=== PATIENT | female | born 1975 | race Caucasian/White ===

== ENCOUNTER 2019-08-27 09:24 | Outpatient (CLI) | payer BC, SELFPAY ==
--- NOTE | 2019-08-27 09:35 | MM_ITS ---
WS: [id number] BILATERAL DIGITAL SCREENING MAMMOGRAPHY WITH CAD CLINICAL INFORMATION: SCREENING HISTORY: Screening mammogram. No current complaints. COMPARISON: July 14, 2018 TECHNIQUE: Bilateral CC and MLO views. FINDINGS: Scattered fibroglandular densities bilaterally. No suspicious focal mass, asymmetry, calcifications, or architectural distortion. No evidence of malignancy. No interval changes. NOTE: Report was unsigned for reason: Ordering provider was edited. Original Signature date and time was: 08/27/19 1728 MTDD MM/[id number] IMPRESSION: BI-RADS: 1-Negative FOLLOW UP: 1 Year Follow-up Recommend return to annual screening mammography.
== END 2019-08-27 09:25 | disposition home or self-care (01) ==
LOC: RADSHAW 09:29
PROVIDERS: Family Provider Family Medicine; PCP Family Medicine; Visit Provider Obstetrics & Gynecology
DX: Z12.31 Encounter for screening mammogram for malignant neoplasm of breast (principal)
CPT/HCPCS: 77067

== ENCOUNTER 2019-09-06 12:00 | Outpatient (CLI) | payer BC, SELFPAY | END 2019-09-06 12:01 | disposition home or self-care (01) | LOC: SLEEP 09-08 12:39 | PROVIDERS: Family Provider Family Medicine; PCP Family Medicine; Visit Provider Family Medicine | DX: G47.33 Obstructive sleep apnea (adult) (pediatric) (principal) | CPT/HCPCS: G0399 ==

== ENCOUNTER 2020-10-05 08:03 | Outpatient (CLI) | payer BC, SELFPAY ==
--- NOTE | 2020-10-05 08:18 | XR_ITS ---
WS: [id number] RIGHT ANKLE: 3 VIEW(S) TECHNIQUE: AP, oblique(s) and lateral. HISTORY: R ANKLE PAIN COMPARISON: 10/21/2007 Normal anatomic alignment with no fracture or dislocation. No joint effusion or widening of the ankle mortise. Small calcaneal spur No soft tissue abnormality. XR/XR ankle RT min 3V* [id number] IMPRESSION: Small calcaneal spur. No fracture.
== END 2020-10-05 08:04 | disposition home or self-care (01) ==
PROVIDERS: PCP Family Medicine; Visit Provider Family Medicine
DX: M25.571 Pain in right ankle and joints of right foot (principal); M77.31 Calcaneal spur, right foot
CPT/HCPCS: 73610

== ENCOUNTER 2020-10-31 14:09 | Outpatient (CLI) | payer SELFPAY ==
--- NOTE | 2020-10-31 14:17 | US_ITS ---
WS: [id number] THYROID ULTRASOUND (TI-RADS CRITERIA) History: Antibody positive thyroiditis. Technique: Ultrasound examination of the thyroid and adjacent soft tissues is performed. FINDINGS: Right lobe: 5.7 cm x 1.8 cm x 2.1 cm. Volume: 11.5 cm3. Moderate enlargement of the thyroid. Marked increased coarsened echotexture without a discrete nodule . There is also moderate increased vascularity. Multiple tiny micronodules. Left lobe: 4.5 cm x 1.5 cm x 1.5 cm. Volume: 5.3 cm3. Mild enlargement of the gland with tiny micronodules. No dominant nodule. Mild increased vascularity. Small cervical chain lymph nodes are benign in appearance. Isthmus: 0.5 cm. US/US thyroid [id number] Impression: 1. Mildly enlarged thyroid with moderate hypervascularity. Findings are consis tent with Graves' disease. 2. No dominant or suspicious thyroid nodule.
== END 2020-10-31 14:10 | disposition home or self-care (01) ==
PROVIDERS: PCP Registered Nurse; Visit Provider Registered Nurse
DX: R76.8 Other specified abnormal immunological findings in serum (principal); E04.9 Nontoxic goiter, unspecified
CPT/HCPCS: 76536

== ENCOUNTER → 2020-11-03 11:37 | Outpatient (BNVA) | payer OTHER, SELFPAY | PROVIDERS: PCP Registered Nurse; Visit Provider Obstetrics & Gynecology | DX: Z20.822 Contact with and (suspected) exposure to COVID-19 (principal) | CPT/HCPCS: 87635 ==

== ENCOUNTER 2020-11-17 09:08 | Outpatient (CLI) | payer OTHER, SELFPAY ==
--- NOTE | 2020-11-17 09:13 | MM_ITS ---
WS: [id number] Bilateral screening digital mammogram, 11/17/2020 Clinical Data: SCREENING Comparison: 08/27/2019, 07/14/2018, 06/18/2017, 04/30/2016. Findings: The breast parenchymal pattern shows fibroglandular tissue No spiculated masses or clustered calcific ations are seen. There are no secondary signs of carcinoma. MM/[id number] Impression: 1. Negative bilateral mammogram unchanged. 2. Recommend annual screening mammograms. BIRADS: 1-Negative FOLLOW UP: 1 Year Follow-up The CAD dump grounds checker was used.
== END 2020-11-17 09:09 | disposition home or self-care (01) ==
LOC: RADSHAW 09:11
PROVIDERS: PCP Registered Nurse; Visit Provider Registered Nurse
DX: Z12.31 Encounter for screening mammogram for malignant neoplasm of breast (principal)
CPT/HCPCS: 77067

== ENCOUNTER → 2020-12-14 11:25 | Outpatient (BNVA) | payer OTHER, SELFPAY | PROVIDERS: PCP Registered Nurse; Visit Provider Obstetrics & Gynecology | DX: N39.3 Stress incontinence (female) (male) (principal); Z20.822 Contact with and (suspected) exposure to COVID-19 | CPT/HCPCS: 87635 ==

== ENCOUNTER 2020-12-20 08:34 | Observation (INO) | payer OTHER, SELFPAY ==
[2020-12-18 10:11] VITALS: BMI 33.6
[2020-12-18 10:16] LABS: Add Urine Microscopic? NO; Charge for UA Resulting for Rev
[2020-12-18 10:18] LABS: Basophils % 0.5 %; Eosinophils # 0.2 10^3/uL (0.0-0.8); Eosinophils % 3.9 %; Hematocrit 42.2 % (37.0-47.0); Lymphocytes # 1.9 10^3/uL (0.8-4.8); Lymphocytes % 33.7 %; Mean Corpuscular HGB Conc 33.2 g/dL (30.0-36.0); Mean Corpuscular Hemoglobin 31.4 pg (28.0-34.0); Mean Corpuscular Volume 94.6 fL (81-99); Mean Platelet Volume 9.8 fL (7.4-10.4); Monocytes # 0.4 10^3/uL (0.2-0.9); Monocytes % 7.7 %; Neutrophils # 3.07 10^3/uL (1.8-7.7); Neutrophils % 53.8 %; Nucleated Red Blood Cells % 0 %; Platelet Count 293 10^3/cmm (130-400); Red Blood Count 4.46 10^6/uL (4.1-5.3); Red Cell Distribution Width 13.1 % (12.1-15.1); White Blood Count 5.7 10^3/uL (4.0-10.0)
[2020-12-18 10:24] LABS: Bilirubin Urine Neg (Negative); Blood Urine Neg (Negative); Glucose Urine UA Norm (Normal); Ketones Urine Negative (Negative); Leukocyte Esterase Urine Negative (Negative); Nitrate Urine Negative (Negative); Protein Urine Neg (Negative); Urine Appearance Clear (CLEAR); Urine Color Yellow (Yellow); Urobilinogen Urine 1 mg/dL (Negative); pH Urine 7 (5-7)
--- NOTE | 2020-12-18 10:32 | ANES.PREANE2 ---
Pre-Anesthetic Assessment Pre-Anesthetic Assessment: Height/Weight: Height 1.65 m Weight 91.626 kg Preop Diagnosis: Stress urinary incontinence Proposed Procedure: Operation Date: 12/20/20 09:00 Proposed Procedures p Midurethral single incision sling 91628 N39.3(Not Applicable) - Marc Rolon MD Was Beta Bryant taken within 24 hours: N/A Was Clonidine taken within 24 hours: N/A Social: Social History: No alcohol and No tobacco Exam: Pre-Anes Outpt Exam: alert, oriented x 3, clear to auscultation bilaterally and regular rate & rhythm Airway: Submandibular: WNL Cervical ROM: WNL MP: 2 Dentition: Full CV/HEM: CV/HEM: HTN Metabolic: Metabolic: Morbid obesity Neuropsych: Comments: h/o brain tumor s/p resection Anesthetic Plan: ASA status: 2 Anesthesia: General Risk of > 500 ml blood loss (7ml/kg in children): No PFSH Anesthesia PFSH: Medical History H/O brain tumor benign tumor removed Hypertension Urinary, incontinence, stress female Surgical History H/O section 2014 History of endometrial ablation 2015 Family History Brother Thyroid condition Sister Thyroid condition Mother Thyroid condition Grandmother Breast cancer maternal great Family/Other Breast cancer maternal great aunt Denies family history of Colon cancer Ovarian cancer Diabetes Clotting disorder Heart disease Hyperlipidemia Anesthesia complication Bleeding disorder Hypertension Uterine cancer Stroke Social History (Updated 12/18/20 @ 08:02 by Kiley Swartz RN) Smoking and tobacco status: never smoked Alcohol intake: never Substance/Drug Use: never Data Anesthesia CBC & Chem 7: 12/18/20 10:00 12/18/20 10:00 Other Labs: Laboratory Results - last 48 hr 12/18/20 12/18/20 09:55 10:00 WBC 5.7 RBC 4.46 Hgb 14.0 Hct 42.2 MCV 94.6 MCH 31.4 MCHC 33.2 RDW 13.1 Plt Count 293 MPV 9.8 Neut % (Auto) 53.8 Lymph % (Auto) 33.7 [place] % (Auto) 7.7 Eos % (Auto) 3.9 Baso % (Auto) 0.5 Neut # (Auto) 3.07 Lymph # (Auto) 1.9 [place] # (Auto) 0.4 Eos # (Auto) 0.2 Baso # (Auto) 0.0 Nucleated RBC % (auto) 0 Nucleated RBCs # 0.0 Urine Color Yellow Urine Appearance Clear Urine pH 7 Ur Specific [place] 1.010 Urine Protein Neg Urine Glucose (UA) Norm Urine Ketones Negative Urine Blood Neg Urine Nitrate Negative Urine Bilirubin Neg Urine Urobilinogen 1 H Ur Leukocyte Esterase Negative Cardiac Studies: No Data to Display
[2020-12-18 10:36] LABS: Alanine Aminotransferase 43 U/L (0-33); Albumin Level 4.2 g/dL (3.5-5.2); Alkaline Phosphatase 83 IU/L (35-105); Aspartate Amino Transferase 15 U/L (0-32); Blood Urea Nitrogen 14 mg/dL (6-20); Calcium 8.3 mg/dL (8.5-10.5); Carbon Dioxide 25 mmol/L (22-29); Chloride 107 mmol/L (98-107); Globulin 2.7 g/dL (1.3-4.6); Glomerular Filtration Rate 90.5 mL/min (90-130); Glucose 73 mg/dL (65-115); Osmolality Calculated 289 mOsm/kg (285-295); Sodium 140 mmol/L (136-145); Total Bilirubin 0.4 mg/dL (0.15-1.2); Total Protein 6.9 g/dL (6.6-8.7)
[2020-12-18 10:38] LABS: Anion Gap 11.8 (5-19); Potassium 3.8 mmol/L (3.5-5.1)
[2020-12-20] VITALS (18 sets, daily range): BP systolic 108–162; BP diastolic 64–111; PULSE 58–93; RESP 12–18; TEMP 36.2–36.8; O2SAT 95–100
[2020-12-20 06:58] LABS: OR HCG Qualitative Urine Negative (Negative)
--- NOTE | 2020-12-20 07:01 | W.PM.OPSUD ---
Surgery/Procedure H&P Update DATE OF PROCEDURE: December 20, 2020 DATE H&P PERFORMED: 12/18/20 H&P UPDATE INFORMATION: I have reviewed H&P completed within last 30 days, I have examined patient prior to procedure and No changes to prior documentation PREOP DIAGNOSIS: Stress urinary incontinence PLANNED PROCEDURE: Operation Date: 12/20/20 08:50 Proposed Procedures p Midurethral single incision sling 91288 N39.3(Not Applicable) - Marc Rolon MD
[2020-12-20] MEDS: sodium chloride 0.9% 1,000 ML 30 ML IV (07:05)
--- NOTE | 2020-12-20 07:16 | P.ANESUD_ITS ---
Pre-Anesthetic Update Pre-Anesthetic Assessment: Date of Surgery/Procedure: 12/20/20 Preop [place] gnosis: Stress urinary incontinence Proposed Procedure: Operation Date: 12/20/20 08:50 Proposed Procedures p Midurethral single incision sling 75587 N39.3(Not Applicable) - Marc Rolon MD Any changes to Pre-Anesthetic Assessment?: No Labs Last 48hrs: Laboratory Results - last 48 hr 12/18/20 12/18/20 12/18/20 09:55 10:00 10:00 WBC 5.7 RBC 4.46 Hgb 14.0 Hct 42.2 MCV 94.6 MCH 31.4 MCHC 33.2 RDW 13.1 Plt Count 293 MPV 9.8 Neut % (Auto) 53.8 Lymph % (Auto) 33.7 [place] % (Auto) 7.7 Eos % (Auto) 3.9 Baso % (Auto) 0.5 Neut # (Auto) 3.07 Lymph # (Auto) 1.9 [place] # (Auto) 0.4 Eos # (Auto) 0.2 Baso # (Auto) 0.0 Nucleated RBC % (a uto) 0 Nucleated RBCs # 0.0 Sodium 140 Potassium 3.8 Chloride 107 Carbon Dioxide 25 Anion Gap 11.8 BUN 14 Creatinine 0.7 GFR Calculation 90.5 Glucose 73 Calculated Osmolal ity 289 Calcium 8.3 L Total Bilirubin 0.4 AST 15 ALT 43 H Alkaline Phosphata se 83 Total Protein 6.9 Albumin 4.2 Globulin 2.7 Urine Color Yellow Urine Appearance Clear Urine pH 7 Ur Specific [place]it y 1.010 Urine Protein Neg Urine Glucose (UA) Norm Urine Ketones Negative Urine Blood Neg Urine Nitrate Negative Urine Bilirubin Neg Urine Urobilinogen 1 H Ur Leukocyte Amy ase Negative Urine HCG, Qual Blood Type Rho(D) Type Antibody Screen 12/18/20 12/20/20 10:00 06:46 WBC RBC Hgb Hct MCV MCH MCHC RDW Plt Count MPV Neut % (Auto) Lymph % (Auto) [place] % (Auto) Eos % (Auto) Baso % (Auto) Neut # (Auto) Lymph # (Auto) [place] # (Auto) Eos # (Auto) Baso # (Auto) Nucleated RBC % (a uto) Nucleated RBCs # Sodium Potassium Chloride Carbon Dioxide Anion Gap BUN Creatinine GFR Calculation Glucose Calculated Osmolal ity Calcium Total Bilirubin AST ALT Alkaline Phosphata se Total Protein Albumin Globulin Urine Color Urine Appearance Urine pH Ur Specific Gravit y Urine Protein Urine Glucose (UA) Urine Ketones Urine Blood Urine Nitrate Urine Bilirubin Urine Urobilinogen Ur Leukocyte Amy ase Urine HCG, Qual Negative Blood Type A Positive Rho(D) Type Positive / 4+ Antibody Screen Negative Vitals: Temperature 97.1 F L 12/20/20 07:04 Temperature Source Temporal Artery S can 12/20/20 07:04 Pulse Rate 87 12/20/20 07:04 Respiratory Rate 18 12/20/20 07:04 Blood Pressure 162/111 12/20/20 07:04 Blood Pressure Megan n 128 12/20/20 07:04 Pulse Oximetry 96 12/20/20 07:04 Oxygen Delivery Me thod 12/20/20 07:04 Exam: Pre-Anes Outpt Exam: alert, oriented x 3, clear to auscultation bilaterally and regular rate & rhythm Cardiac Studies: 2 No Data to Display
--- NOTE | 2020-12-20 08:06 | PM.OP ---
Operative Report Date of procedure: December 20, 2020 Pre-op Diagnosis: Stress urinary incontinence Post-op diagnosis: same Post-op Findings: Urethral hypermobility Procedure Done: Single incision mid urethral sling Implants: Coloplast single incision sling Pathology: none sent Anesthesia: MAC Estimated blood loss (mL): 25 IV fluids (mL): 100 Urine output (mL): 25 Complications: None Condition: stable Disposition: PACU Brief History: Mrs. Enriquez 45-year-old female with a history of stress urinary incontinence. Procedure: After obtaining informed consent, the patient was taken to the operating room and placed in the supine position, given general anesthesia, and prepped and draped in sterile fashion. The abdomen, vulva and vagina were prepped and draped in a sterile manner. A time out procedure was performed. The anterior vaginal mucosa beneath the midurethra was infiltrated with 0.5% Marcaine with epinephrine. A vertical midline incision was made beneath the midurethra, nearly 1.5 cm length. Careful submucosal dissection was performed bilaterally up to the interior portion of the inferior pubic ramus. The insertion of adductor longus tendon on the patient?s pubic ramus was identified as reference land veena. Palpated the notch along the internal edge of ischiopubic ramus where the adductor longus tendon and the inferior pubic ramus meet. The needle of the SIS inserted aiming at the location of this notch. One of the integrated self-fixating tips place onto the needle by sliding it over the end of the needle. The needle/sling assembly was inserted toward the location of identified reference notch making sure that the flat of the handle is perpendicular to the desired path. The needle was tracked along the posterior surface of the ischiopubic ramus until the midline veena on the mesh is approximately at the midline position under the urethra. The needle was removed and the same was repeated on the contralateral side until the appropriate sling tension under the urethra was achieved ensuring that the mesh lays flat. The sling needle was removed and vaginal incision was closed in a running interlocking fashion with 2-0 Vicryl. Excellent hemostasis was obtained. Sponge, lap, needle, and instrument counts were correct times three. The patient was taken to the recovery room, awake and in stable condition.
--- NOTE | 2020-12-20 09:17 | PC.NURSE ---
Respiratory notified Ruby from respiratory notified at this time. Request for IS education for patient.
[2020-12-20] MEDS: lisinopril 5 mg Tablet PO (10:26)
[2020-12-20] MEDS: dextrose 5%-lactated ringers 1,000 ML 125 ML IV ×2 (10:37→18:28)
[2020-12-20] MEDS: acetaminophen 325 mg Tablet 650 MG PO (11:05)
--- NOTE | 2020-12-20 13:34 | ANE.PACU2 ---
Inpatient post-anesthesia follow up: Airway intact: Yes Vital signs: Temperature 98.0 F Pulse Rate 87 Respiratory Rate 15 Blood Pressure 134/80 Pulse Oximetry 95 Oxygen Delivery Me thod Room Air Oxygen Flow Rate 2 Fraction of Inspir ed Oxygen Hydration adequate: Yes Nausea and vomiting: No Mental status: Baseline
[2020-12-20] MEDS: ketorolac 30 mg/mL INJ IVP ×2 (15:34→21:01)
[2020-12-20] MEDS: docusate sodium 100 mg Capsule PO (18:28)
[2020-12-20] MEDS: methIMAzole 5 MG Tablet 10 MG PO (19:31)
[2020-12-21] MEDS: ketorolac 30 mg/mL INJ IVP (04:09)
[2020-12-21 04:13] VITALS: BP 109/69; PULSE 81; RESP 17; TEMP 36.7; O2SAT 96
[2020-12-21 05:16] LABS: Hematocrit 37.4 % (37.0-47.0); Hemoglobin 12.5 g/dL (11.5-15.3); Mean Corpuscular HGB Conc 33.4 g/dL (30.0-36.0); Mean Corpuscular Hemoglobin 31.8 pg (28.0-34.0); Mean Corpuscular Volume 95.2 fL (81-99); Mean Platelet Volume 10.2 fL (7.4-10.4); Platelet Count 298 10^3/cmm (130-400); Red Blood Count 3.93 10^6/uL (4.1-5.3); Red Cell Distribution Width 13.2 % (12.1-15.1)
--- NOTE | 2020-12-21 08:51 | PM.OBGYDC ---
Discharge Providers TECHNICAL ILLUSTRATOR Date of Admission: 12/20/20 08:34 Date of Discharge: 12/21/20 Attending Provider at Admission: Marc Rolon MD Attending Provider at Discharge: Marc Rolon MD Primary Care Provider: Jessie Land Diagnoses at Discharge Discharge Diagnosis (1) Urinary, incontinence, stress female: Status: Acute Reason for Visit Reason for Visit: Stress incontinence Hospital Course Hospital Course Mrs. Enriquez 45-year-old female with stress urinary incontinence. Admitted for planned single incision mid urethral sling. The single incision mid urethral sling was performed without complications. Overnight observation uneventful. She is operative day one. She is afebrile and hemodynamically stable. Tolerating diet well. Ambulating without difficulty. Pain well under control. Is post void PVR greater than 150 mL the patient will be discharged home with a Orr catheter and leg bag and instructed to return to the clinic on Friday. Otherwise routine follow-up Pap 2 weeks. This documentation was created by [employer] coal dumping equipment operator software (known for inherent coal dumping equipment operator error). Every effort was made to assure accuracy of coal dumping equipment operator. Any obvious errors or omissions should be clarified with the author of the document. Physical Exam Narrative: EXAM NARRATIVE: GA: Alert and oriented ?3. HEENT: WNL. Heart: Regular rate and rhythm. Lungs: Clear to auscultation bilaterally. Abdomen: Bowel sounds present, nontender. COOLER OPERATOR: No bleeding. Extremities: No edema, no cyanosis, no calves pain. Urinary Catheter Management^: f: Cath Placed During This Visit: yes, but has since been removed by the nurse Reason for Continuing Indwelling Catheter: Decision to DC Catheter Urinary Catheter Date of Insertion: 12/20/20 Urinary Catheter Time of Insertion: 07:35 Date Urinary Catheter Removed: 12/21/20 Time Urinary Catheter Discontinued: 06:40 Discharge Data Data Completed and Pending: Labs from last 24 hours 12/21/20 05:02 WBC 14.0 H RBC 3.93 L Hgb 12.5 Hct 37.4 MCV 95.2 MCH 31.8 MCHC 33.4 RDW 13.2 Plt Count 298 MPV 10.2 Vitals: Last Vital Signs Temp 98.1 F 12/21/20 04:13 Pulse 81 12/21/20 04:13 Resp 17 12/21/20 04:13 BP 109/69 12/21/20 04:13 Pulse Ox 96 12/21/20 04:13 Discharge Plan Discharge Patient Disposition: Home Condition: Stable Prescriptions: New hydrocodone-acetaminophen 5-325 mg tablet 1 tab PO Q4H PRN (Reason: pain) Qty: 20 RF: 0 acetaminophen 325 mg capsule 325 mg PO Q4H PRN (Reason: fever or pain) Qty: 60 RF: 0 ibuprofen 800 mg tablet 800 mg PO TID PRN (Reason: pain) Qty: 60 RF: 0 Continued lisinopril 5 mg tablet 5 mg PO DAILY RF: 0 methimazole 10 mg tablet 10 mg PO BID RF: 0 Discharge Orders: Discharge Order (Routine); Ordered 12/21/20 Ordered By: Marc Rolon Referrals: Marc Rolon MD [Physician] - 2 weeks (If D/C home with orr catheter, return to clinic on Friday.) Discharge Diet: Usual diet Discharge Activity: Increase activity as tolerated Patient Instructions: Bladder Sling Procedures (DC), Opioid Safety Activity Restrictions/Additional Instructions: 1. Please call [facility] on next working day to make your post[-operative] appointment in [2] weeks. 2. Please stay home until you come back to the clinic on first post-operative check up. 3. Please follow instructions on your medications CAREFULLY. 4. If you have abdominal incision, do not cover it unless dressing is necessary because of drainage. OK to shower, but avoid bath. Leave steri-strips until they fall off. If they are still on one week after surgery, you may remove them. 5. If you had vaginal surgery or vaginal repair, Dr. Rolon may instruct you to take SITZ bath. 6. Yellow, blood tinged odorous vaginal discharge is usually normal after hysterectomy or vaginal surgeries. 7. No sexual intercourse, tampons, or douches until you are completely released from the post-operative care. 8. Avoid constipation by eating right and maybe using some Metamucil or Milk of Magnesia. 9. All prescription refills are given during the working hours. Please do no wait till it runs out. Call the clinic at [phone] before your medication runs out. The clinic will get in touch with your doctor to prescribe medications if necessary. 10. Please remain within 40 mile radius from our hospital because emergencies do happen now and then during the post-operative period. 11. If you have stairs at home, take one step at a time slowly and minimize the number of trips. It helps to stay in one floor for the next few days. No lifting except what you can lift by one hand until you are released from the post-operative care. 12. Driving is discouraged until you are well healed. It may be 3-4 weeks before you feel strong enough to drive. You should be able to turn and look through the rear window without pain and you should be able to push the brake pedal very hard without pain before you drive. No fast rules, but SAFETY should be your primary concern. DO NOT drive if you are on sedating medications such as narcotics. 13. Call the clinic (during working hours) to make urgent appointment or go to the Emergency room, if any of the following occurs: i. Vaginal bleeding becomes heavy, more than a period. ii. Incision becomes red and sore, or drains pus. iii. Your temperature is over 100.4 or you have chill. iv. IV site becomes red and swollen (a little ``knot?? is usually OK) v. Persistent nausea and vomiting vi. Persistent constipation or diarrhea vii. Rash or allergic reaction to medications. Discharge Attestations TECHNICAL ILLUSTRATOR Time Spent in Discharge Care*: greater than 30 min Coding Level of Care Code Acute Humanities Coordinator for Jeff Hall Diagnoses Urinary, incontinence, stress female N39.3
--- NOTE | 2020-12-21 09:20 | PC.NURSE ---
Bladder Scan Patient was scanned x3 after voiding, ranging from 53-86ml after voiding 400ml.
[2020-12-21] MEDS: ibuprofen 800 mg tablet PO (09:41)
[2020-12-21] MEDS: docusate sodium 100 mg Capsule PO (09:41)
[2020-12-21] MEDS: methIMAzole 5 MG Tablet 10 MG PO (09:42)
[2020-12-21] MEDS: lisinopril 5 mg Tablet PO (09:42)
[2020-12-21] MEDS: HYDROcodone-acetaminophen 5-325 mg Tablet PO (10:20)
[2020-12-21 12:11] VITALS: BP 142/88; PULSE 58; RESP 18; TEMP 36.5; O2SAT 100
== END 2020-12-21 09:45 | disposition home or self-care (01) ==
LOC: OBGYN 08:34
PROVIDERS: Admitting Provider Obstetrics & Gynecology; PCP Registered Nurse; Visit Provider Obstetrics & Gynecology
PROC: (CPT 57288; principal; 2020-12-20 08:40)
DX: N39.3 Stress incontinence (female) (male) (principal); I10 Essential (primary) hypertension; E66.01 Morbid (severe) obesity due to excess calories; Z68.33 Body mass index [BMI] 33.0-33.9, adult
CPT/HCPCS: 57288; 36415; 51798; 80053; 81003; 81025; 84703; 85025; 85027; 86850; 86900; 96365; C1713; G0378; J0690; J1100; J1200; J1885; J2250; J2405; J2704; J3010; J7030

== ENCOUNTER 2021-04-02 15:42 | Outpatient (CLI) | payer OTHER, SELFPAY ==
[2020-11-06 12:44] VITALS: BMI 34.2
--- NOTE | 2020-11-06 13:13 | ANES.PREANE2 ---
Pre-Anesthetic Assessment Pre-Anesthetic Assessment: Height/Weight: Height 1.65 m Weight 93.44 kg Preop Diagnosis: Stress urinary incontinence Proposed Procedure: Operation Date: 11/08/20 12:30 Proposed Procedures p Midurethral single incision sling 50821 n39.3(Not Applicable) - Marc Rolon MD Familial anesthetic complications: None Social: Social History: No alcohol and No tobacco Exam: Pre-Anes Outpt Exam: alert, oriented x 3, clear to auscultation bilaterally and regular rate & rhythm Airway: Cervical ROM: WNL MP: 2 Dentition: Full CV/HEM: CV/HEM: HTN Metabolic: Metabolic: Thyroid Anesthetic Plan: ASA status: 2 Anesthesia: General Other: patient took phentermine 4/5 - will need to hold for 7 days before proceeding with surgery Risk of > 500 ml blood loss (7ml/kg in children): No PFSH Anesthesia PFSH: Medical History (Updated 11/06/20 @ 08:56 by Kiley Swartz RN) H/O brain tumor benign tumor removed Hypertension Urinary, incontinence, stress female Surgical History H/O section 2014 History of endometrial ablation 2016 Family History Brother Thyroid condition Sister Thyroid condition Mother Thyroid condition Grandmother Breast cancer maternal great Family/Other Breast cancer maternal great aunt Denies family history of Colon cancer Ovarian cancer Diabetes Clotting disorder Heart disease Hyperlipidemia Anesthesia complication Bleeding disorder Hypertension Uterine cancer Stroke Social History (Updated 11/06/20 @ 08:55 by Kiley Swartz RN) Smoking and tobacco status: never smoked Alcohol intake: never Substance/Drug Use: never Data Anesthesia Cardiac Studies: No Data to Display
[2020-11-06 13:15] LABS: Add Urine Microscopic? NO; Charge for UA Resulting for Rev
[2020-11-06 13:19] LABS: Basophils % 0.6 %; Eosinophils # 0.2 10^3/uL (0.0-0.8); Hematocrit 44.7 % (37.0-47.0); Lymphocytes # 1.9 10^3/uL (0.8-4.8); Lymphocytes % 27.1 %; Mean Corpuscular HGB Conc 33.6 g/dL (30.0-36.0); Mean Corpuscular Hemoglobin 31.3 pg (28.0-34.0); Mean Corpuscular Volume 93.3 fL (81-99); Mean Platelet Volume 9.8 fL (7.4-10.4); Monocytes # 0.5 10^3/uL (0.2-0.9); Neutrophils # 4.27 10^3/uL (1.8-7.7); Nucleated Red Blood Cells % 0 %; Platelet Count 309 10^3/cmm (130-400); Red Blood Count 4.79 10^6/uL (4.1-5.3); Red Cell Distribution Width 12.5 % (12.1-15.1); White Blood Count 6.9 10^3/uL (4.0-10.0)
[2020-11-06 13:25] LABS: Bilirubin Urine Neg (Negative); Blood Urine Neg (Negative); Glucose Urine UA Norm (Normal); Ketones Urine Negative (Negative); Leukocyte Esterase Urine Negative (Negative); Nitrate Urine Negative (Negative); Protein Urine Neg (Negative); Urine Appearance Clear (CLEAR); Urine Color Straw (Yellow); Urobilinogen Urine Norm (Negative); pH Urine 7 (5-7)
[2020-11-06 13:42] LABS: Alanine Aminotransferase 29 U/L (0-33); Albumin Level 4.6 g/dL (3.5-5.2); Alkaline Phosphatase 66 IU/L (35-105); Aspartate Amino Transferase 15 U/L (0-32); Blood Urea Nitrogen 13 mg/dL (6-20); Calcium 8.9 mg/dL (8.5-10.5); Carbon Dioxide 22 mmol/L (22-29); Chloride 104 mmol/L (98-107); Globulin 2.9 g/dL (1.3-4.6); Glomerular Filtration Rate 108.1 mL/min (90-130); Glucose 88 mg/dL (65-115); Osmolality Calculated 284 mOsm/kg (285-295); Sodium 137 mmol/L (136-145); Total Bilirubin 0.6 mg/dL (0.15-1.2); Total Protein 7.5 g/dL (6.6-8.7)
[2020-11-06 13:43] LABS: Anion Gap 14.7 (5-19); Potassium 3.7 mmol/L (3.5-5.1)
[2020-11-06 15:35] LABS: OR HCG Qualitative Urine Negative (Negative)
== END 2021-04-02 15:43 | disposition home or self-care (01) ==
LOC: OPS 15:43
PROVIDERS: PCP Registered Nurse; Visit Provider Obstetrics & Gynecology
DX: Z01.818 Encounter for other preprocedural examination (principal); N39.3 Stress incontinence (female) (male); I10 Essential (primary) hypertension
CPT/HCPCS: 80053; 81003; 84703; 85025; 86850; 86900

== ENCOUNTER 2021-11-07 18:38 | Emergency (ER) | payer OTHER, SELFPAY ==
[2021-11-07 19:18] VITALS: BP 156/93; PULSE 88; RESP 20; TEMP 36.7; O2SAT 98; BMI 36.6
--- NOTE | 2021-11-07 19:44 | XRR_ITS ---
PROCEDURE INFORMATION: Exam: XR Right Finger(s) Exam date and time: 11/07/2021 7:57 PM Age: 46 years old Clinical indication: Injury or trauma; Other: Cut with glass; Laceration; Right; Middle finger; Additional info: Middle; Laceration; Cut on glass TECHNIQUE: Imaging protocol: XR Right fingers. Views: Minimum 2 views. COMPARISON: No relevant prior studies available. FINDINGS: Bones/joints: Normal. Soft tissues: No soft tissue foreign body visualized. XR/XR finger RT min 2V [id number] IMPRESSION: No acute finding.
--- NOTE | 2021-11-07 19:45 | W.ED.WOUNDLC ---
HPI - Wound/Laceration General: Chief Complaint: Wound/Laceration Stated Complaint: right finger lac Time Seen by Provider: 11/07/21 19:17 Source: patient Mode of arrival: ambulatory Limitations: no limitations History of Present Illness: Patient is a 46-year-old female presents to ED today with a complaint of a laceration to her right middle finger that she sustained while washing dishes and states there was a broken glass in the dishwater. Patient's tetanus is up-to-date. She has no other injuries or complaints at this time. Onset (ago): hour(s) Extremity Location: Right: hand Place: home Patient tetanus UTD: Yes Context: accidental Associated symptoms: Reports no associated symptoms Review of Systems Musc: Reports: extremity pain (R middle finger); Denies: extremity swelling or joint swelling Skin/Breast: Reports: other (laceration R middle finger) Neuro: Denies: numbness in extremities or sensory changes [facility] ED PFSH: Medical History Aftercare following surgery of the genitourinary system H/O brain tumor benign tumor removed Hypertension Urinary, incontinence, stress female Surgical History H/O section 2013 H/O vaginal surgery 12/20/2020- single incision mid urethral sling performed by Dr. Rolon at [facility] History of endometrial ablation 2015 Family History Brother Thyroid condition Sister Thyroid condition Mother Thyroid condition Grandmother Breast cancer maternal great Family/Other Breast cancer maternal great aunt Denies family history of Colon cancer Ovarian cancer Diabetes Clotting disorder Heart disease Hyperlipidemia Anesthesia complication Bleeding disorder Hypertension Uterine cancer Stroke Social History Smoking and tobacco status: never smoked Alcohol intake: never Physical Exam Const: COMMON NORMALS: no acute distress, patient oriented x3, no limitations, alert and well nourished Extremity: GENERAL: Yes normal exam except as noted RIGHT UPPER EXTREMITY: Yes hand & digits OTHER: 0.75 laceration overlying dorsal PIP joint of R middle finger; full ROM of joint present; sensory intact; normal cap refill Neuro: COMMON NORMALS: patient oriented x3, moves all extremities, no focal motor deficits and no sensory deficits noted SENSORIUM/ORIENTATION: Yes alert Procedures Laceration Laceration 1: Site: hand (R middle finger) Side (If applicable): right Size (cm): 0.75 Description: linear Depth: simple, single layer Pre-repair: wound explored and irrigated extensively Skin layer closed with: other (skin adhesive/glue) Course Vital Signs: Vital signs: Vital Signs Temperature 98.1 F 11/07/21 19:18 Pulse Rate 88 11/07/21 19:18 Respiratory Rate 20 H 11/07/21 19:18 Blood Pressure 156/93 11/07/21 19:18 Pulse Oximetry 98 11/07/21 19:18 MDM - Wound/Laceration Medical Decision Making XR negative for fx/retained glass/fb. Wound is superficial and edges approximate perfectly. No tendon/nerve/bony damage. Was repaired with skin adhesive/glue. Will ines tape fingers since overlies joint. Wound care/infection precautions discussed. Discharge Plan Discharge Patient Disposition: Home Clinical Impression: Laceration of right middle finger Qualifiers: Encounter type: initial encounter Damage to nail status: without damage Foreign body presence: without foreign body Qualified Code(s): S61.212A - Laceration without foreign body of right middle finger without damage to nail, initial encounter Condition: Stable Prescriptions: No Action lisinopril 5 mg tablet 5 mg PO DAILY 0RF methimazole 10 mg tablet 10 mg PO BID 0RF Label Comments: holding for 3 weeks ibuprofen 800 mg tablet 800 mg PO TID PRN (Reason: pain) Qty: 60 0RF acetaminophen 325 mg capsule 325 mg PO Q4H PRN (Reason: fever or pain) Qty: 60 0RF Discharge Orders: Discharge ED (Routine); Ordered 11/07/21 Ordered By: Caroline Bedoya Referrals: Jessie Land [Primary Care Provider] - Patient Instructions: Finger Laceration (ED) Activity Restrictions/Additional Instructions: Keep wound/laceration clean with warm soap and water twice daily. Monitor for signs of infection such as redness, swelling, increased pain, or drainage. Please seek medical re-evaluation if these occur. If your wound was closed with Steri-Strips or glue/adhesive these will fall off within the next week or so. Coding Level of Care Code ED Supervisor Histology for Jeff Fwd Exam Expanded Problem Focused
== END 2021-11-07 20:29 | disposition home or self-care (01) ==
PROVIDERS: Emergency Provider Physician Assistant; PCP Registered Nurse
DX: S61.212A Laceration without foreign body of right middle finger without damage to nail, initial encounter (principal); W25.XXXA Contact with sharp glass, initial encounter
CPT/HCPCS: 73140; 99282

== ENCOUNTER → 2022-02-05 09:25 | Outpatient (BNVA) | payer OTHER, SELFPAY | PROVIDERS: PCP Registered Nurse; Visit Provider Obstetrics & Gynecology | DX: Z12.4 Encounter for screening for malignant neoplasm of cervix (principal) | CPT/HCPCS: 87624 ==

== ENCOUNTER 2022-02-28 10:39 | Outpatient (CLI) | payer OTHER, SELFPAY ==
[2022-02-28 13:20] LABS: Free T4 Free Thyroxine 0.76 ng/dL (0.82-1.77); Thyroid Stimulating Hormone 1.41 uIU/mL (0.27-4.20)
[2022-03-01 08:08] LABS: T3 Total 141 ng/dL (76-181)
[2022-03-05 18:36] LABS: TSH Receptor Binding Antibody 1.06 IU/L (< OR = 2.00)
== END 2022-02-28 10:40 | disposition home or self-care (01) ==
PROVIDERS: PCP Registered Nurse; Visit Provider Internal Medicine
DX: E06.3 Autoimmune thyroiditis (principal); R93.89 Abnormal findings on diagnostic imaging of other specified body structures
CPT/HCPCS: 36415; 83516; 84439; 84443; 84480

== ENCOUNTER → 2022-05-16 09:41 | Outpatient (BNVA) | payer OTHER, SELFPAY | PROVIDERS: PCP Registered Nurse; Visit Provider Internal Medicine | DX: E03.8 Other specified hypothyroidism (principal); R93.89 Abnormal findings on diagnostic imaging of other specified body structures; R51.9 Headache, unspecified | CPT/HCPCS: 36415; 84439; 84443 ==

== ENCOUNTER 2022-07-08 08:16 | Outpatient (CLI) | payer OTHER, SELFPAY ==
[2022-07-08 09:23] LABS: Free T4 Free Thyroxine 1.07 ng/dL (0.82-1.77); Thyroid Stimulating Hormone 0.88 uIU/mL (0.27-4.20)
== END 2022-07-08 08:17 | disposition home or self-care (01) ==
LOC: LAB 08:19
PROVIDERS: PCP Registered Nurse; Visit Provider Internal Medicine
DX: E03.8 Other specified hypothyroidism (principal)
CPT/HCPCS: 84439; 84443

== ENCOUNTER 2022-09-05 10:27 | Outpatient (CLI) | payer OTHER, SELFPAY ==
[2022-09-05 11:27] LABS: Free T4 Free Thyroxine 1.14 ng/dL (0.82-1.77); Thyroid Stimulating Hormone 0.64 uIU/mL (0.27-4.20)
[2022-09-06 06:55] LABS: T3 Total 131 ng/dL (76-181)
== END 2022-09-05 10:28 | disposition home or self-care (01) ==
PROVIDERS: PCP Registered Nurse; Visit Provider Internal Medicine
DX: E03.8 Other specified hypothyroidism (principal)
CPT/HCPCS: 84439; 84443; 84480

== ENCOUNTER 2022-10-31 08:32 | Outpatient (CLI) | payer OTHER, BC, SELFPAY ==
--- NOTE | 2022-10-31 08:45 | MR_ITS ---
WS: [id number] MRI BRAIN WITHOUT AND WITH CONTRAST, ATTENTION DIRECTED TO THE PITUITARY GLAND HISTORY: assess for tumor COMPARISON: 01/09/2017 TECHNIQUE: Diffusion-weighted imaging, axial T2 sequence, and postcontrast images in 3 planes are per formed. High-resolution coronal and sagittal imaging performed through the pituitary region with and without intravenous gadolinium. MultiHance 20 mL IV. Stable postoperative changes involving the LEFT mastoid air cells with fat packing. Very similar in a ppearance to the prior examination. No diffusion-weighted abnormalities. No acute infarct. Mild small vessel ischemic disease with no prior large territory infarct. Mild atrophic appearance of the pituitary gland. No deviation of the infundibulum or optic chiasm. No mass or abnormal enhancement. Mild displacement inferiorly of the cerebellar tonsils but no Chiari m alformation. Ventricles are normal size. No hydrocephalus. Cerebellopontine angles are normal. 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 No mass or sign al abnormality in the 7th and 8th cranial nerve complexes. Visualized dural venous sinuses and tanacross of Palafox are negative. No filling defects. No aneurysms a re identified. Paranasal sinuses are clear. MR/MR pituitary wo/w con* [id number] IMPRESSION: 1. Stable postoperative changes involving the LEFT mastoid air cells with fat packing. 2. Normal pituitary gland. No mass or abnormal signal. 3. Mild small vessel ischemic disease similar to prior studies. 4. Stable small pineal gland cyst.
[2022-10-31] MEDS: gadobenate dimeglumine 20 mL vial IV (09:34)
== END 2022-10-31 08:33 | disposition home or self-care (01) ==
LOC: RAD 08:42
PROVIDERS: PCP Registered Nurse; Visit Provider Internal Medicine
DX: Z87.898 Personal history of other specified conditions (principal); I67.82 Cerebral ischemia
CPT/HCPCS: 70553; A9577

== ENCOUNTER 2022-11-14 10:57 | Outpatient (CLI) | payer OTHER, SELFPAY ==
[2022-11-14 13:19] LABS: Free T4 Free Thyroxine 1.15 ng/dL (0.82-1.77)
[2022-11-15 14:04] LABS: T3 Total 136 ng/dL (76-181)
== END 2022-11-14 10:58 | disposition home or self-care (01) ==
LOC: LAB 10:58
PROVIDERS: PCP Registered Nurse; Visit Provider Internal Medicine
DX: E03.8 Other specified hypothyroidism (principal); E06.3 Autoimmune thyroiditis
CPT/HCPCS: 36415; 84439; 84443; 84480

== ENCOUNTER 2023-03-10 10:55 | Outpatient (CLI) | payer OTHER, MEDICAID, BC, SELFPAY ==
[2023-03-10 12:57] LABS: Free T4 Free Thyroxine 1.19 ng/dL (0.82-1.77); Thyroid Stimulating Hormone 0.72 uIU/mL (0.27-4.20)
[2023-03-11 08:14] LABS: T3 Total 125 ng/dL (76-181)
== END 2023-03-10 10:56 | disposition home or self-care (01) ==
PROVIDERS: PCP Registered Nurse; Visit Provider Internal Medicine
DX: E03.8 Other specified hypothyroidism (principal); R51.9 Headache, unspecified; R93.89 Abnormal findings on diagnostic imaging of other specified body structures; Z87.898 Personal history of other specified conditions
CPT/HCPCS: 36415; 84439; 84443; 84480

== ENCOUNTER 2023-07-16 11:53 | Outpatient (CLI) | payer OTHER, BC, SELFPAY ==
[2023-07-16 12:58] LABS: Blood Urea Nitrogen 12 mg/dL (6-20); Calcium 9.1 mg/dL (8.5-10.5); Carbon Dioxide 24 mmol/L (22-29); Chloride 104 mmol/L (98-107); Glomerular Filtration Rate 106.7 mL/min (90-130); Glucose 94 mg/dL (65-115); Osmolality Calculated 282 mOsm/kg (285-295); Sodium 136 mmol/L (136-145); Thyroid Stimulating Hormone 0.17 uIU/mL (0.27-4.20)
[2023-07-16 12:59] LABS: Anion Gap 12.2 (5-19); Potassium 4.2 mmol/L (3.5-5.1)
== END 2023-07-16 11:54 | disposition home or self-care (01) ==
LOC: LAB 11:53
PROVIDERS: PCP Nurse Practitioner Family; Visit Provider Internal Medicine
DX: E03.8 Other specified hypothyroidism (principal); R93.89 Abnormal findings on diagnostic imaging of other specified body structures; R51.9 Headache, unspecified; Z87.898 Personal history of other specified conditions; E66.9 Obesity, unspecified; I10 Essential (primary) hypertension
CPT/HCPCS: 36415; 80048; 84439; 84443

== ENCOUNTER 2023-07-17 10:02 | Emergency (ER) | payer OTHER, BC, MEDICAID, SELFPAY ==
[2023-07-17] VITALS (10 sets, daily range): BP systolic 118–217; BP diastolic 82–138; PULSE 76–98; RESP 16–18; TEMP 36.4; O2SAT 95–100; BMI 29.9
--- NOTE | 2023-07-17 10:46 | W.ED.HA ---
HPI - Headache General: Chief Complaint: Headache Stated Complaint: sent from dr hartman high blood pressure Time Seen by Provider: 07/17/23 10:25 History of Present Illness: Patient presents to the ER from Dr. Hartman's office for high blood pressure. Patient states she is on lisinopril 20 mg daily for high blood pressure and and has been taking it. Patient states she has been getting headaches and high blood pressure ever since she had brain surgery on the left side of her head. The neurosurgeon said it may be from her trauma from surgery. Patient does correlate the high blood pressure with the headaches. The higher the blood pressure the more likely she does get headaches. The lower the blood pressure the less likely she is get headaches. This is her normal typical headache on her left side of her head. Review of Systems General: Reports: 10 or more systems reviewed and unremarkable except in HPI and below PFSH ED PFSH: Medical History Well woman exam with routine gynecological exam Aftercare following surgery of the genitourinary system Hypertension H/O brain tumor benign tumor removed Urinary, incontinence, stress female Surgical History H/O vaginal surgery 12/20/2020- single incision mid urethral sling performed by Dr. Rolon at [facility] H/O section 2014 History of endometrial ablation 2016 Family History Brother Thyroid disease Sister Thyroid disease Mother Thyroid disease Grandmother Breast cancer maternal great Family/Other Breast cancer maternal great aunt Denies family history of Colon cancer Ovarian cancer Diabetes Clotting disorder Heart disease Hyperlipidemia Anesthesia complication Bleeding disorder Hypertension Uterine cancer Stroke Social History Smoking and tobacco/nicotine status: never used tobacco/nicotine Alcohol intake: never Substance/Drug Use: never Physical Exam Const: COMMON NORMALS: no acute distress, average body habitus, patient oriented x3, no limitations, healthy appearing, alert and well nourished HENMT: COMMON NORMALS: normocephalic, atraumatic, hearing grossly normal bilaterally, external ears normal, Normal external nose present, moist oral mucous membranes and oropharynx normal HEAD & SCALP: normocephalic and atraumatic NOSE: Normal external nose present EXTERNAL EAR: Yes external ears normal Eye: COMMON NORMALS: Equal, round and reactive pupils present, EOMs intact bilaterally, conjunctivae normal and no scleral icterus CONJUNCTIVA: Yes conjunctivae normal PUPIL: Yes Equal, round and reactive pupils present Neck/C-Spine: COMMON NORMALS: full ROM, no lymphadenopathy, supple, no meningeal signs, no JVD and Thyroid normal THYROID: Thyroid normal Chest: COMMONS NORMALS: normal inspection of the chest and normal palpation of entire chest wall Resp: COMMON NORMALS: normal respiratory effort, No retractions, No use of accessory muscles and clear to auscultation bilaterally AUSCULTATION: clear to auscultation bilaterally Cardio: COMMON NORMALS: no JVD, regular rate, regular rhythm, S1 normal heart sound present, S2 normal heart sound present, No gallops present (Cardio), No clicks present (Cardio), No murmurs present (Cardio) and No rub (Cardio) RATE: regular rate RHYTHM: regular rhythm HEART SOUNDS: S1 normal heart sound present and S2 normal heart sound present GI: COMMON NORMALS: Normal to inspection, nondistended, normoactive bowel sounds present, Soft to palpation, non-tender, No hepatosplenomegaly present and no masses PALPATION: Yes Soft to palpation and Yes No hepatosplenomegaly present : COMMON NORMALS: Yes no CVA tenderness BLADDER/KIDNEY EXAM: Yes no CVA tenderness Back/Pelvis: COMMON NORMALS: no CVA tenderness Neuro: COMMON NORMALS: patient oriented x3 SENSORIUM/ORIENTATION: Yes alert MENINGEAL SIGNS: Yes no meningeal signs Course Vital Signs: Vital signs: Vital Signs Temperature 97.6 F 07/17/23 10:11 Pulse Rate 98 07/17/23 12:39 Respiratory Rate 18 07/17/23 12:39 Blood Pressure 141/97 07/17/23 12:39 Pulse Oximetry 98 07/17/23 12:39 Oxygen Delivery Me thod Room Air 07/17/23 12:39 MDM - Headache Medical Decision Making Patient presents to the ER with complaints of headache and high blood pressure. Patient had lab work done which was essentially unremarkable. Patient was given clonidine 0.2 mg p.o. as well as Toradol 60 mg IM. Upon recheck patient's blood pressure had went down to 115/66 and headache had been reduced significantly. Patient be discharged home on clonidine to take on an as-needed basis and to keep a blood pressure log and follow-up with her family practice physician within the next week. Differential Diagnosis Likely headache; Unlikely migraine, tension headache, subarachnoid hemorrhage, meningitis, sinusitis or postconcussion syndrome Medical Records I reviewed the patient's medical records. Lab Data I reviewed the patient's lab results. 07/17/23 10:50 07/17/23 10:50 Laboratory Results WBC 5.80 10^3/uL (3.29-11.43) 07/17/23 10:50 RBC 4.36 10^6/uL (3.85-5.65) 07/17/23 10:50 Hgb 14.00 g/dL (11.27-16.99) 07/17/23 10:50 Hct 40.0 % (36-47) 07/17/23 10:50 MCV 91.7 fl (85-98) 07/17/23 10:50 MCH 32.1 pg (27-33) 07/17/23 10:50 MCHC 35.0 g/dL (30-55) 07/17/23 10:50 RDW 12.8 % (12.1-15.1) 07/17/23 10:50 Plt Count 315 10^3/cmm (157-399) 07/17/23 10:50 MPV 9.6 fL (7.4-10.4) 07/17/23 10:50 Neut % (Auto) 64.4 % 07/17/23 10:50 Lymph % (Auto) 27.1 % 07/17/23 10:50 [place] % (Auto) 7.1 % 07/17/23 10:50 Eos % (Auto) 0.5 % 07/17/23 10:50 Baso % (Auto) 0.7 % 07/17/23 10:50 Neut # (Auto) 3.74 10^3/uL (1.8-7.7) 07/17/23 10:50 Lymph # (Auto) 1.6 10^3/uL (0.8-4.8) 07/17/23 10:50 [place] # (Auto) 0.4 10^3/uL (0.2-0.9) 07/17/23 10:50 Eos # (Auto) 0.0 10^3/uL (0.0-0.8) 07/17/23 10:50 Baso # (Auto) 0.0 10^3/uL (0.0-0.1) 07/17/23 10:50 Nucleated RBC % (auto) 0 % 07/17/23 10:50 Nucleated RBCs # 0.0 /100WBC 07/17/23 10:50 Sodium 137 mmol/L (136-145) 07/17/23 10:50 Potassium 4.1 mmol/L (3.5-5.1) 07/17/23 10:50 Chloride 104 mmol/L (98-107) 07/17/23 10:50 Carbon Dioxide 24 mmol/L (22-29) 07/17/23 10:50 Anion Gap 13.1 (5-19) 07/17/23 10:50 BUN 14 mg/dL (6-20) 07/17/23 10:50 Creatinine 0.6 mg/dL (0.5-0.9) 07/17/23 10:50 GFR Calculation 106.7 mL/min (90-130) 07/17/23 10:50 Glucose 89 mg/dL (65-115) 07/17/23 10:50 Calculated Osmolality 284 mOsm/kg (285-295) L 07/17/23 10:50 Calcium 9.0 mg/dL (8.5-10.5) 07/17/23 10:50 Total Bilirubin 0.4 mg/dL (0.15-1.2) 07/17/23 10:50 AST 12 U/L (0-32) 07/17/23 10:50 ALT 22 U/L (0-33) 07/17/23 10:50 Alkaline Phosphatase 66 U/L (35-105) 07/17/23 10:50 Total Protein 6.5 g/dL (6.6-8.7) L 07/17/23 10:50 Albumin 4.2 g/dL (3.5-5.2) 07/17/23 10:50 Globulin 2.3 g/dL (1.3-4.6) 07/17/23 10:50 All radiology interpretation(s) finalized by discharge Discharge Plan Discharge Patient Disposition: Home Clinical Impression: Hypertensive urgency, Headache Condition: Stable Prescriptions: No Action triamcinolone acetonide 0.1 % ointment 1 applic topical BID (DME) pen needle, diabetic [BD Ultra-Fine Micro Pen Needle] 32 gauge x 1/4 needle See Rx Instructions .ROUTE .MEDSUPPLY Qty: 12 3RF Rx Instructions: As directed lisinopril 20 mg tablet 20 mg PO DAILY Qty: 90 1RF levothyroxine 50 mcg tablet 50 mcg PO DAILY Qty: 112 2RF Rx Instructions: 1 tab fri, 1 tab on Friday, 1.5 tablet friday metformin 500 mg tablet extended release 24 hr 500 mg PO BID Qty: 60 3RF Victoza 3-Bear 0.6 mg/0.1 mL (18 mg/3 mL) pen injector See Rx Instructions .ROUTE .COMPLEX Qty: 9 0RF Dose Instruction: inject 1.8mg (0.3ml) SUBCUTANEOUSLY EVERY DAY Rx Instructions: inject 1.8mg (0.3ml) SUBCUTANEOUSLY EVERY DAY Benadryl 25 mg Capsule 25 mg PO DAILY Discharge Orders: Discharge ED (Routine); Ordered 07/17/23 Ordered By: Filippo Louis Referrals: Angelita Bustillo, FANCY SEWER [Primary Care Provider] - 1 week Patient Instructions: Hypertension (ED), Headache Activity Restrictions/Additional Instructions: Please take all medicine as directed, please keep a blood pressure log and follow-up with your family practice physician within next 7 days. Please return to the ER if symptoms worsen or blood pressure is uncontrolled on current regimen. Coding Level of Care Code ED Director Drug Safety for Jeff Hall
[2023-07-17] MEDS: cloNIDine 0.1 mg Tablet 0.2 MG PO (10:56)
[2023-07-17 10:57] LABS: Basophils % 0.7 %; Eosinophils % 0.5 %; Lymphocytes # 1.6 10^3/uL (0.8-4.8); Lymphocytes % 27.1 %; Mean Corpuscular Hemoglobin 32.1 pg (27-33); Mean Corpuscular Volume 91.7 fl (85-98); Mean Platelet Volume 9.6 fL (7.4-10.4); Monocytes # 0.4 10^3/uL (0.2-0.9); Monocytes % 7.1 %; Neutrophils # 3.74 10^3/uL (1.8-7.7); Neutrophils % 64.4 %; Nucleated Red Blood Cells % 0 %; Platelet Count 315 10^3/cmm (157-399); Red Blood Count 4.36 10^6/uL (3.85-5.65); Red Cell Distribution Width 12.8 % (12.1-15.1)
[2023-07-17] MEDS: ketorolac 60 mg/2 mL INJ IM (12:35)
[2023-07-17 12:38] LABS: Alanine Aminotransferase 22 U/L (0-33); Albumin Level 4.2 g/dL (3.5-5.2); Alkaline Phosphatase 66 U/L (35-105); Anion Gap 13.1 (5-19); Aspartate Amino Transferase 12 U/L (0-32); Blood Urea Nitrogen 14 mg/dL (6-20); Carbon Dioxide 24 mmol/L (22-29); Chloride 104 mmol/L (98-107); Globulin 2.3 g/dL (1.3-4.6); Glomerular Filtration Rate 106.7 mL/min (90-130); Glucose 89 mg/dL (65-115); Osmolality Calculated 284 mOsm/kg (285-295); Potassium 4.1 mmol/L (3.5-5.1); Sodium 137 mmol/L (136-145); Total Bilirubin 0.4 mg/dL (0.15-1.2); Total Protein 6.5 g/dL (6.6-8.7)
== END 2023-07-17 14:39 | disposition home or self-care (01) ==
PROVIDERS: Emergency Provider Emergency Medicine; PCP Nurse Practitioner Family
DX: I16.0 Hypertensive urgency (principal); R51.9 Headache, unspecified; Z79.84 Long term (current) use of oral hypoglycemic drugs; I10 Essential (primary) hypertension
CPT/HCPCS: 80053; 85025; 96372; 99284; J1885

== ENCOUNTER 2023-07-18 00:44 | Emergency (ER) | payer OTHER, BC, MEDICAID, SELFPAY ==
[2023-07-18] VITALS (23 sets, daily range): BP systolic 113–210; BP diastolic 69–133; PULSE 84–128; RESP 9–27; TEMP 36.3; O2SAT 92–100; BMI 29.9
[2023-07-18 01:27] LABS: Basophils % 0.4 %; Eosinophils # 0.1 10^3/uL (0.0-0.8); Eosinophils % 1.2 %; Hematocrit 41.7 % (36-47); Lymphocytes # 2.1 10^3/uL (0.8-4.8); Lymphocytes % 30.6 %; Mean Corpuscular Hemoglobin 32.2 pg (27-33); Mean Corpuscular Volume 91.9 fl (85-98); Mean Platelet Volume 9.4 fL (7.4-10.4); Monocytes # 0.7 10^3/uL (0.2-0.9); Monocytes % 9.5 %; Neutrophils # 3.98 10^3/uL (1.8-7.7); Nucleated Red Blood Cells % 0 %; Platelet Count 311 10^3/cmm (157-399); Red Blood Count 4.54 10^6/uL (3.85-5.65); Red Cell Distribution Width 12.8 % (12.1-15.1); White Blood Count 6.86 10^3/uL (3.29-11.43)
[2023-07-18] MEDS: amlodipine 10 mg Tablet PO (01:32)
[2023-07-18] MEDS: hyDRALAzine 20 mg/mL INJ 1 mL IVP (01:32)
[2023-07-18 01:42] LABS: Alanine Aminotransferase 26 U/L (0-33); Albumin Level 4.5 g/dL (3.5-5.2); Alkaline Phosphatase 73 U/L (35-105); Anion Gap 16.8 (5-19); Aspartate Amino Transferase 14 U/L (0-32); Blood Urea Nitrogen 17 mg/dL (6-20); Calcium 9.5 mg/dL (8.5-10.5); Carbon Dioxide 21 mmol/L (22-29); Chloride 104 mmol/L (98-107); Globulin 2.7 g/dL (1.3-4.6); Glomerular Filtration Rate 76.6 mL/min (90-130); Glucose 108 mg/dL (65-115); Osmolality Calculated 288 mOsm/kg (285-295); Potassium 3.8 mmol/L (3.5-5.1); Sodium 138 mmol/L (136-145); Total Bilirubin 0.5 mg/dL (0.15-1.2); Total Protein 7.2 g/dL (6.6-8.7)
[2023-07-18] MEDS: hyDRALAzine 20 mg/mL INJ 1 mL 10 MG IVP (02:10)
[2023-07-18] MEDS: HYDROmorphone 1 mg/mL INJ 1 mL IVP (02:35)
[2023-07-18] MEDS: ondansetron 2 mg/ML SDV 2 mL 4 MG IVP (02:35)
--- NOTE | 2023-07-18 03:14 | W.ED.RECABL ---
HPI - Recheck/Abnormal Lab/Rx General: Chief Complaint: Recheck/Abnormal Lab/Rx Stated Complaint: BP High\ABD Pain Time Seen by Provider: 07/18/23 01:19 History of Present Illness: 48-year-old female presents emergency department with complaints of elevated blood pressure and headache. She states she also has lower abdominal pain. She states she was seen earlier today for high blood pressure and headache and was advised to return if her blood pressure elevated and she had return of her pain. Review of Systems General: Reports: 10 or more systems reviewed and unremarkable except in HPI and below GI: Reports: abdominal pain Neuro: Reports: headache(s) PFS ED PFSH: Medical History Well woman exam with routine gynecological exam Aftercare following surgery of the genitourinary system Hypertension H/O brain tumor benign tumor removed Urinary, incontinence, stress female Surgical History H/O vaginal surgery 12/20/2020- single incision mid urethral sling performed by Dr. Rolon at [facility] H/O section 2014 History of endometrial ablation 2016 Family History Brother Thyroid disease Sister Thyroid disease Mother Thyroid disease Grandmother Breast cancer maternal great Family/Other Breast cancer maternal great aunt Denies family history of Colon cancer Ovarian cancer Diabetes Clotting disorder Heart disease Hyperlipidemia Anesthesia complication Bleeding disorder Hypertension Uterine cancer Stroke Social History Smoking and tobacco/nicotine status: never used tobacco/nicotine Alcohol intake: never Substance/Drug Use: never Physical Exam Narrative: EXAM NARRATIVE: Constitutional: the patient appears well nourished and with normal development. Vital signs reviewed as documented. HENMT: Normocephalic, atraumatic. Extermal ears with normal appearance without drainage. Nose without drainage, normal appearance. Mucus membranes moist. Neck is supple, No jugular venous distension, trachea is midline, no appreciable carotid bruits. No lymphadenopathy. No meningeal signs. Flexion, extension and lateral rotation is without pain. Eyes: Pupils are equal, round, reactive to light and accommodation. No scleral icterus. Extra-ocular movement are intact. Thorax is symmetrical and with equal rise and fall with respirations. Resp: Lungs are clear to auscultation. No wheezes, rales, crackles or ronchi at present. Cardio: Regular rate and rhythm. Positive S1, S2. No appreciable murmurs, rubs or gallops. GI: Abdominal exam reveals normal bowel sounds to all quadrants. No organomegaly. No obvious palpable masses noted. No hepatomegally appreciated. Soft, nontender to palpation. Extremity: Extremities are non-edematous and both femoral and pedal pulses are 2+ and equal bilaterally. Moves all extremities well, sensation in all extremities. Neuro: Alert and oriented x4, person, place, time and situation. Cranial nerves II through XII are grossly intact, there is no focal neurological deficits that I can appreciate at present. Motor strength in the upper and lower extremities are equal and bilateral 5/5. Psych: Cooperative, calm, normal thought process, appropriate judgment. Skin: No lesions, rashes. No gross abnormalities noted. Back: Symmetrical, no obvious deformity, No CVA tenderness Course Vital Signs: Vital signs: Vital Signs Temperature 97.3 F L 07/18/23 00:51 Pulse Rate 96 07/18/23 04:20 Respiratory Rate 15 07/18/23 04:20 Blood Pressure 125/82 07/18/23 04:20 Pulse Oximetry 96 07/18/23 04:20 Oxygen Delivery Me thod Room Air 07/18/23 04:08 MDM - Recheck/Abnormal Lab/Rx Medical Decision Making Physical exam completed and documented I will obtain CBC CMP start IV and provide her antihypertensive medication as well as pain control. Medical Records I reviewed the patient's medical records. Lab Data I reviewed the patient's lab results. 07/18/23 01:21 07/18/23 01:21 Laboratory Results WBC 6.86 10^3/uL (3.29-11.43) 07/18/23 01:21 RBC 4.54 10^6/uL (3.85-5.65) 07/18/23 01:21 Hgb 14.60 g/dL (11.27-16.99) 07/18/23 01:21 Hct 41.7 % (36-47) 07/18/23 01:21 MCV 91.9 fl (85-98) 07/18/23 01:21 MCH 32.2 pg (27-33) 07/18/23 01:21 MCHC 35.0 g/dL (30-55) 07/18/23 01:21 RDW 12.8 % (12.1-15.1) 07/18/23 01:21 Plt Count 311 10^3/cmm (157-399) 07/18/23 01:21 MPV 9.4 fL (7.4-10.4) 07/18/23 01:21 Neut % (Auto) 58.0 % 07/18/23 01:21 Lymph % (Auto) 30.6 % 07/18/23 01:21 [place] % (Auto) 9.5 % 07/18/23 01:21 Eos % (Auto) 1.2 % 07/18/23 01:21 Baso % (Auto) 0.4 % 07/18/23 01:21 Neut # (Auto) 3.98 10^3/uL (1.8-7.7) 07/18/23 01:21 Lymph # (Auto) 2.1 10^3/uL (0.8-4.8) 07/18/23 01:21 [place] # (Auto) 0.7 10^3/uL (0.2-0.9) 07/18/23 01:21 Eos # (Auto) 0.1 10^3/uL (0.0-0.8) 07/18/23 01:21 Baso # (Auto) 0.0 10^3/uL (0.0-0.1) 07/18/23 01:21 Nucleated RBC % (auto) 0 % 07/18/23 01:21 Nucleated RBCs # 0.0 /100WBC 07/18/23 01:21 Sodium 138 mmol/L (136-145) 07/18/23 01:21 Potassium 3.8 mmol/L (3.5-5.1) 07/18/23 01:21 Chloride 104 mmol/L (98-107) 07/18/23 01:21 Carbon Dioxide 21 mmol/L (22-29) L 07/18/23 01:21 Anion Gap 16.8 (5-19) 07/18/23 01:21 BUN 17 mg/dL (6-20) 07/18/23 01:21 Creatinine 0.8 mg/dL (0.5-0.9) 07/18/23 01:21 GFR Calculation 76.6 mL/min (90-130) L 07/18/23 01:21 Glucose 108 mg/dL (65-115) 07/18/23 01:21 Calculated Osmolality 288 mOsm/kg (285-295) 07/18/23 01:21 Calcium 9.5 mg/dL (8.5-10.5) 07/18/23 01:21 Total Bilirubin 0.5 mg/dL (0.15-1.2) 07/18/23 01:21 AST 14 U/L (0-32) 07/18/23 01:21 ALT 26 U/L (0-33) 07/18/23 01:21 Alkaline Phosphatase 73 U/L (35-105) 07/18/23 01:21 Total Protein 7.2 g/dL (6.6-8.7) 07/18/23 01:21 Albumin 4.5 g/dL (3.5-5.2) 07/18/23 01:21 Globulin 2.7 g/dL (1.3-4.6) 07/18/23 01:21 All radiology interpretation(s) finalized by discharge Discharge Plan Discharge Patient Disposition: Home Clinical Impression: Hypertension, uncontrolled Condition: Stable Prescriptions: New hydrochlorothiazide 25 mg tablet 25 mg PO QAM Qty: 30 0RF No Action triamcinolone acetonide 0.1 % ointment 1 applic topical BID (DME) pen needle, diabetic [BD Ultra-Fine Micro Pen Needle] 32 gauge x 1/4 needle See Rx Instructions .ROUTE .MEDSUPPLY Qty: 12 3RF Rx Instructions: As directed lisinopril 20 mg tablet 20 mg PO DAILY Qty: 90 1RF levothyroxine 50 mcg tablet 50 mcg PO DAILY Qty: 112 2RF Rx Instructions: 1 tab fri, 1 tab on Friday, 1.5 tablet friday Victoza 3-Bear 0.6 mg/0.1 mL (18 mg/3 mL) pen injector See Rx Instructions .ROUTE .COMPLEX Qty: 9 0RF Dose Instruction: inject 1.8mg (0.3ml) SUBCUTANEOUSLY EVERY DAY Rx Instructions: inject 1.8mg (0.3ml) SUBCUTANEOUSLY EVERY DAY metformin 500 mg tablet extended release 24 hr See Rx Instructions .ROUTE .COMPLEX Qty: 60 3RF Dose Instruction: TAKE 1 TABLET BY MOUTH TWICE DAILY Rx Instructions: TAKE 1 TABLET BY MOUTH TWICE DAILY Benadryl 25 mg Capsule 25 mg PO DAILY clonidine HCl 0.1 mg tablet See Rx Instructions .ROUTE .COMPLEX Qty: 20 0RF Rx Instructions: Please take 1 tablet by mouth 3 times a day as needed for blood pressure greater than 160/100 Discharge Orders: Discharge ED (Routine); Ordered 08/13/23 Ordered By: Alan Hutton Referrals: Angelita Bustillo, [facility] [employer] [employer] [Primary Care Provider] - Discharge Diet: Low Salt Discharge Activity: Resume usual activity Patient Instructions: Opioid Safety, Pain Management Activity Restrictions/Additional Instructions: Activity Restrictions/Additional Instructions: Thank you for choosing [facility] for your healthcare needs today. Please realize that you were seen in the Emergency Department and that we are providing you with an emergency medical screening exam and this may not be a complete and all inclusive of all the testing and or medical work-up that you may need to determine your ailment or severity of your illness. It is very important that you follow-up as instructed with your Primary care provider or Specialist for additional evaluation and to discuss your medical treatment plan. You may return to the Emergency Department should you have concerns or if your condition changes or worsens in any way. Coding Level of Care Code ED [employer] Administrator for Jeff Hall
== END 2023-07-18 04:22 | disposition home or self-care (01) ==
PROVIDERS: Emergency Provider Internal Medicine; PCP Nurse Practitioner Family
DX: I10 Essential (primary) hypertension (principal); Z79.84 Long term (current) use of oral hypoglycemic drugs
CPT/HCPCS: 80053; 85025; 96374; 96375; 96376; 99284; J0360; J1170; J2405

== ENCOUNTER 2023-10-28 19:20 | Emergency (ER) | payer OTHER, BC, MEDICAID, SELFPAY ==
[2023-10-28 19:30] VITALS: BP 184/123; PULSE 92; RESP 15; TEMP 36.4; O2SAT 99
--- NOTE | 2023-10-28 19:51 | ECG_ITS ---
[facility] Test Date: 2023-10-28 Pat Name: Charito Enriquez Department: Room: Gender: Female Rag Baler: : 1975 Requested By: Alan Hutton Order Number: [id number] Sotomayor MD: Idalmis Sumner M.D. Measurements Intervals [place] Rate: 105 P: 41 MT: 161 QRS: -9 QRSD: 92 T: 22 QT: 347 QTc: 459 Interpretive Statements SINUS TACHYCARDIA LEFT ATRIAL ENLARGEMENT [-0.15mV P-WAVE IN V1/V2] POSSIBLE LEFT VENTRICULAR HYPERTROPHY [VOLTAGE CRITERIA PLUS LAE OR QRS WIDENING] MINIMAL ST DEPRESSION [0.025+ mV ST DEPRESSION] Compared to ECG 01/12/2019 22:29:29 Atrial abnormality now present ST (T wave) deviation now present Sinus rhythm no longer present Myocardial infarct finding no longer present Electronically Signed On 10-29-2023 23:48:53 CDT by Idalmis Sumner M.D. [email or web address]
[2023-10-28 20:00] VITALS: BP 167/110; PULSE 94; RESP 16; O2SAT 94
[2023-10-28] MEDS: hyDRALAzine 20 mg/mL INJ 1 mL IVP (20:01)
[2023-10-28 20:02] LABS: Basophils % 0.5 %; Eosinophils # 0.1 10^3/uL (0.0-0.8); Eosinophils % 0.9 %; Hematocrit 45.8 % (36-47); Lymphocytes # 2.4 10^3/uL (0.8-4.8); Lymphocytes % 27.6 %; Mean Corpuscular HGB Conc 34.5 g/dL (30-55); Mean Corpuscular Hemoglobin 31.5 pg (27-33); Mean Corpuscular Volume 91.4 fl (85-98); Mean Platelet Volume 9.7 fL (7.4-10.4); Monocytes # 0.5 10^3/uL (0.2-0.9); Monocytes % 5.6 %; Neutrophils # 5.76 10^3/uL (1.8-7.7); Neutrophils % 65.2 %; Nucleated Red Blood Cells % 0 %; Platelet Count 343 10^3/cmm (157-399); Red Blood Count 5.01 10^6/uL (3.85-5.65); Red Cell Distribution Width 12.5 % (12.1-15.1); White Blood Count 8.82 10^3/uL (3.29-11.43)
[2023-10-28 20:22] LABS: Alanine Aminotransferase 20 U/L (0-33); Albumin Level 4.5 g/dL (3.5-5.2); Alkaline Phosphatase 75 U/L (35-105); Anion Gap 16.7 (5-19); Aspartate Amino Transferase 12 U/L (0-32); Blood Urea Nitrogen 14 mg/dL (6-20); Calcium 9.5 mg/dL (8.5-10.5); Carbon Dioxide 22 mmol/L (22-29); Chloride 103 mmol/L (98-107); Creatinine Clr Calc Pharmacy 103.4555; Globulin 2.8 g/dL (1.3-4.6); Glomerular Filtration Rate 89.3 mL/min (90-130); Glucose 77 mg/dL (65-115); Osmolality Calculated 285 mOsm/kg (285-295); Potassium 3.7 mmol/L (3.5-5.1); Sodium 138 mmol/L (136-145); Total Bilirubin 0.5 mg/dL (0.15-1.2); Total Protein 7.3 g/dL (6.6-8.7)
[2023-10-28 20:30] VITALS: BP 131/84; PULSE 118; RESP 16; O2SAT 99
--- NOTE | 2023-10-28 20:44 | ED_ITS ---
HPI - Headache 2 General: Chief Complaint: Headache Stated Complaint: High BP Time Seen by Provider: 10/28/23 19:49 History of Present Illness: 48-year-old female presents to the emerg ency department with complaints of generalized allover throbbing headache worsening over the previous 3 days. She states she started having blurred vision this evening and elevated blood pressure. She states she also felt nauseated which prompted her to come to the emergency department to be evaluated. The patient states that she is taking lisinopril 20 mg daily for her hypertension. 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 The patient was seen previously in the emergency department and provided a prescription for hydrochlorothiazide in addition to her lisinopril as she is been to the emergency department several times with uncontrolled hypertension. Patient states that she has not received anything additional regarding medication from her primary care provider and states that she does not recall ever getting the prescription of hydrochlorothiazide filled. Associated symptoms: Reports nausea Review of Systems 2 General: Reports: 10 or more systems reviewed and unremarkable except in HPI and below Eyes: Reports: blurry vision GI: Reports: nausea Neuro: Reports: headache(s) PFSH ED 2 PFSH: Medical History Well woman exam with routine gynecological exam Aftercare following surgery of the genitourinary system Hypertension H/O brain tumor benign tumor removed Urinary, incontinence, stress female Surgical History H/O vaginal surgery 12/20/2020- single incision mid urethral sling performed by Dr. Rolon at [facility] H/O section 2014 History of endometrial ablation 2016 Family History Brother Thyroid disease Sister Thyroid disease Mother Thyroid disease Grandmother Breast cancer maternal great Family/Other Breast cancer maternal great aunt Denies family history of Colon cancer Ovarian cancer Diabetes Clotting disorder Heart disease Hyperlipidemia Anesthesia complication Bleeding disorder Hypertension Uterine cancer Stroke Social History Smoking and tobacco/nicotine status: never used tobacco/nicotine Alcohol intake: never Substance/Drug Use: never Physical Exam 2 Narrative: EXAM NARRATIVE: Constitutional: the patient appears well nourished and with normal development. Vital signs reviewed as documented. GCS 15. HENMT: Normocephalic, atraumatic. Deaf in her left ear. Left-sided facial droop post tumor resection. external ears normal appearance without drainage. Nose without drainage, normal appearance. Mucus membranes moist. Neck is supple, No jugular venous distension, trachea is midline, no appreciable carotid bruits. No lymphadenopathy. No meningeal signs. Flexion, extension and lateral rotation is without pain. Eyes: Pupils are equal, round, reactive to light and accommodation. No scleral icterus. Extra-ocular movement are intact. Thorax is symmetrical and with equal rise and fall with respirations. Resp: Lungs are clear to auscultation. No wheezes, rales, crackles or ronchi at present. Cardio: Regular rate and rhythm. Positive S1, S2. No appreciable murmurs, rubs or gallops. GI: Abdominal exam reveals normal bowel sounds to all quadrants. No organomegaly. No obvious palpable masses noted. No hepatomegally appreciated. Soft, non-tender to palpation. Extremity: Extremities are non-edematous and both femoral and pedal pulses are 2+ and equal bilaterally. Moves all extremities well, sensation in all extremities. Neuro: Alert and oriented x4, person, place, time and situation. Cranial nerves II through XII are grossly intact, there is no focal neurological deficits that I can appreciate at present. Sensation intact to all extremities. 2-point discrimination intact. Light touch intact to all extremities. Left-sided facial droop that is chronic and secondary to her brain tumor resection. Motor strength in the upper and lower extremities are equal and bilateral 5/5. Psych: Cooperative, calm, normal thought process, appropriate judgment. Skin: No lesions, rashes. No gross abnormalities noted. Back: Symmetrical, no obvious deformity, No CVA tenderness Course 2 Reevaluation(s): Reevaluation #1: Patient states that she now feels like her heart is skipping beats although her blood pressure is significantly corrected and is within an acceptable normal range. I have advised her that given her hypothyroidism I will check a TSH and cardiac enzymes and obtain a repeat twelve-lead EKG. Time: 21:03 Reevaluation #2: Repeat evaluation demonstrates improved control the patient's heart rate and blood pressure. I did discuss with her the need for follow-up with her primary care provider and possible cardiology evaluation for her intermittent sinus tachycardia. Her current heart rate is 101 bpm I suspect there is an anxiety component to that. Time: 22:47 Vital Signs: Vital signs: Vital Signs Temperature 97.5 F L 10/28/23 19:30 Pulse Rate 98 10/28/23 22:52 Respiratory Rate 16 10/28/23 22:52 Blood Pressure 130/94 10/28/23 22:52 Pulse Oximetry 99 10/28/23 22:52 Oxygen Delivery Me thod Room Air 10/28/23 19:30 MDM - Headache Medical Decision Making Physical exam completed and documented I did obtain a CBC which was essentially normal and his CMP was also essentially unremarkable twelve-lead EKG did not demonstrate any significant findings with exception of sinus tachycardia at a heart rate of 105. The patient did receive hydralazine and her blood pressure improved significantly to 131/84. I did educate the patient extensively regarding the effects and complications of uncontrolled hypertension and advised her that I would again prescribe her hydrochlorothiazide to take in conjunction with her existing lisinopril. Differential diagnosis to include electrolyte abnormality, posterior reversible encephalopathic syndrome, migraine headache, medication noncompliance Medical Records I reviewed the patient's medical records. Lab Data I reviewed the patient's lab results. 10/28/23 19:56 10/28/23 19:56 Laboratory Results WBC 8.82 10^3/uL (3.29-11.43) 10/28/23 19:56 RBC 5.01 10^6/uL (3.85-5.65) 10/28/23 19:56 Hgb 15.80 g/dL (11.27-16.99) 10/28/23 19:56 Hct 45.8 % (36-47) 10/28/23 19:56 MCV 91.4 fl (85-98) 10/28/23 19:56 MCH 31.5 pg (27-33) 10/28/23 19:56 MCHC 34.5 g/dL (30-55) 10/28/23 19:56 RDW 12.5 % (12.1-15.1) 10/28/23 19:56 Plt Count 343 10^3/cmm (157-399) 10/28/23 19:56 MPV 9.7 fL (7.4-10.4) 10/28/23 19:56 Neut % (Auto) 65.2 % 10/28/23 19:56 Lymph % (Auto) 27.6 % 10/28/23 19:56 [place] % (Auto) 5.6 % 10/28/23 19:56 Eos % (Auto) 0.9 % 10/28/23 19:56 Baso % (Auto) 0.5 % 10/28/23 19:56 Neut # (Auto) 5.76 10^3/uL (1.8-7.7) 10/28/23 19:56 Lymph # (Auto) 2.4 10^3/uL (0.8-4.8) 10/28/23 19:56 [place] # (Auto) 0.5 10^3/uL (0.2-0.9) 10/28/23 19:56 Eos # (Auto) 0.1 10^3/uL (0.0-0.8) 10/28/23 19:56 Baso # (Auto) 0.0 10^3/uL (0.0-0.1) 10/28/23 19:56 Nucleated RBC % (auto) 0 % 10/28/23 19:56 Nucleated RBCs # 0.0 /100WBC 10/28/23 19:56 Sodium 138 mmol/L (136-145) 10/28/23 19:56 Potassium 3.7 mmol/L (3.5-5.1) 10/28/23 19:56 Chloride 103 mmol/L (98-107) 10/28/23 19:56 Carbon Dioxide 22 mmol/L (22-29) 10/28/23 19:56 Anion Gap 16.7 (5-19) 10/28/23 19:56 BUN 14 mg/dL (6-20) 10/28/23 19:56 Creatinine 0.7 mg/dL (0.5-0.9) 10/28/23 19:56 GFR Calculation 89.3 mL/min (90-130) L 10/28/23 19:56 Glucose 77 mg/dL (65-115) 10/28/23 19:56 Calculated Osmolality 285 mOsm/kg (285-295) 10/28/23 19:56 Calcium 9.5 mg/dL (8.5-10.5) 10/28/23 19:56 Total Bilirubin 0.5 mg/dL (0.15-1.2) 10/28/23 19:56 AST 12 U/L (0-32) 10/28/23 19:56 ALT 20 U/L (0-33) 10/28/23 19:56 Alkaline Phosphatase 75 U/L (35-105) 10/28/23 19:56 Troponin T Baseline < 6 ng/L (0-10) 10/28/23 19:56 Troponin T 120 Minute 6.00 ng/L (0-10) 10/28/23 21:43 Delta Troponin T 0.83925 ABS# (0-10) 10/28/23 21:43 Total Protein 7.3 g/dL (6.6-8.7) 10/28/23 19:56 Albumin 4.5 g/dL (3.5-5.2) 10/28/23 19:56 Globulin 2.8 g/dL (1.3-4.6) 10/28/23 19:56 TSH 0.81 uIU/mL (0.27-4.20) 10/28/23 19:56 Urine Color Yellow (Yellow) 10/28/23 21:54 Urine Appearance Clear (CLEAR) 10/28/23 21:54 Urine pH 5 (5-7) 10/28/23 21:54 Ur Specific Omega 1.020 (1.005-1.030) 10/28/23 21:54 Urine Protein Neg (Negative) 10/28/23 21:54 Urine Glucose (UA) Norm (Normal) 10/28/23 21:54 Urine Ketones Negative (Negative) 10/28/23 21:54 Urine Blood Neg (Negative) 10/28/23 21:54 Urine Nitrate Negative (Negative) 10/28/23 21:54 Urine Bilirubin Neg (Negative) 10/28/23 21:54 Urine Urobilinogen Neg mg/dL (Negative) 10/28/23 21:54 Ur Leukocyte Esterase Negative (Negative) 10/28/23 21:54 Urine Opiates Screen Negative ng/mL (Negative) 10/28/23 21:54 Ur Barbiturates Screen Negative ng/mL (Negative) 10/28/23 21:54 Ur Phencyclidine Scrn Negative ng/mL (Negative) 10/28/23 21:54 Ur Amphetamines Screen Negative ng/mL (Negative) 10/28/23 21:54 U Benzodiazepines Scrn Negative ng/mL (Negative) 10/28/23 21:54 Urine Cocaine Screen Negative ng/mL (Negative) 10/28/23 21:54 U Marijuana (THC) Screen Negative ng/mL (Negative) 10/28/23 21:54 No radiology studies performed this visit EKG Data EKG 1: Interpretation: Twelve-lead EKG obtained at 2012 reviewed at 2014 demonstrates sinus tachycardia with a ventricular rate of 105 bpm, DC interval 161 QRS duration 92, QT 347 QTc 408 there is significant motion artifact noted on the EKG although there is no obvious ST elevation or depression to demonstrate acute ischemia or infarction at present. Discharge Plan Discharge Patient Disposition: Home Clinical Impression: Hypertension, uncontrolled, Headache, Sinus tachycardia Condition: Stable Prescriptions: New hydrochlorothiazide 25 mg tablet 25 mg PO DAILY Qty: 90 0RF metoprolol tartrate 25 mg tablet 12.5 mg PO BID Qty: 30 0RF No Action triamcinolone acetonide 0.1 % ointment 1 applic topical BID lisinopril 20 mg tablet 20 mg PO DAILY Qty: 90 1RF levothyroxine 50 mcg tablet 50 mcg PO DAILY Qty: 112 2RF Rx Instructions: 1 tab fri, 1 tab on Friday, 1.5 tablet friday metformin 500 mg tablet extended release 24 hr See Rx Instructions .ROUTE .COMPLEX Qty: 60 3RF Dose Instruction: TAKE 1 TABLET BY MOUTH TWICE DAILY Rx Instructions: TAKE 1 TABLET BY MOUTH TWICE DAILY Victoza 3-Bear 0.6 mg/0.1 mL (18 mg/3 mL) pen injector See Rx Instructions .ROUTE .COMPLEX Qty: 9 0RF Dose Instruction: inject 1.8mg (0.3ml) SUBCUTANEOUSLY EVERY DAY Rx Instructions: inject 1.8mg (0.3ml) SUBCUTANEOUSLY EVERY DAY (DME) pen needle, diabetic [BD Ultra-Fine Coby Pen Needle] 32 gauge x 5/32 needle See Rx Instructions .ROUTE .COMPLEX Qty: 100 3RF Dose Instruction: USE DIRECTED Rx Instructions: USE DIRECTED Benadryl 25 mg Capsule 25 mg PO DAILY clonidine HCl 0.1 mg tablet See Rx Instructions .ROUTE .COMPLEX Qty: 20 0RF Rx Instructions: Please take 1 tablet by mouth 3 times a day as needed for blood pressure greater than 160/100 hydrochlorothiazide 25 mg tablet 25 mg PO QAM Qty: 30 0RF Discharge Orders: Discharge ED (Routine); Ordered 10/28/23 Ordered By: Alan Hutton Referrals: Angelita Bustillo, CLAIMS TECHNICIAN [Primary Care Provider] - Discharge Diet: Low Salt Discharge Activity: Resume usual activity Patient Instructions: Opioid Safety, Pain Management Activity Restrictions/Additional Instructions: Activity Restrictions/Additional Instructions: Thank you for choosing [facility] for your healthcare needs today. Please realize that you were seen in the Emergency Department and that we are providing you with an emergency medical screening exam and this may not be a complete and all inclusive of all the testing and or medical work-up that you may need to determine your ailment or severity of your illness. It is very important that you follow-up as instructed with your Primary care provider or Specialist for additional evaluation and to discuss your medical treatment plan. You may return to the Emergency Department should you have concerns or if your condition changes or worsens in any way. Continue to take your lisinopril and the prescribed hydrochlorothiazide antihypertensive medication to help control your blood pressure. Coding Level of Care Code ED Ore Crusher for Jeff Hall
--- NOTE | 2023-10-28 21:02 | ECG_ITS ---
[facility] Test Date: 2023-10-28 Pat Name: Charito Enriquez Department: Room: Gender: Female Director Critical Care: : 1975 Requested By: Alan Hutton Order Number: [id number] Sotomayor MD: Idalmis Sumner M.D. Measurements Intervals [place] Rate: 104 P: 43 IN: 165 QRS: -11 QRSD: 86 T: 47 QT: 326 QTc: 431 Interpretive Statements SINUS TACHYCARDIA POSSIBLE LEFT ATRIAL ENLARGEMENT [-0.1mV P-WAVE IN V1/V2] LEFT VENTRICULAR HYPERTROPHY AND ST-T CHANGE [VOLTAGE CRITERIA PLUS ST/T ABNORMALITY] Compared to ECG 10/28/2023 20:13:32 No significant changes Electronically Signed On 10-29-2023 23:49:26 CDT by Idalmis Sumner M.D. [email or web address]
[2023-10-28 21:03] VITALS: BP 128/95; PULSE 114; RESP 16; O2SAT 100
[2023-10-28] MEDS: acetaminophen 500 mg Tablet 1000 MG PO (21:12)
[2023-10-28 21:30] VITALS: BP 149/98; PULSE 115; RESP 18; O2SAT 100
[2023-10-28 21:35] LABS: Troponin(5th) Baseline < 6 ng/L (0-10)
[2023-10-28 21:44] LABS: Thyroid Stimulating Hormone 0.81 uIU/mL (0.27-4.20)
[2023-10-28 22:01] LABS: Add Urine Microscopic? NO; Charge for UA Resulting for Rev
[2023-10-28 22:10] LABS: Troponin 5 2HR Delta 0.00001 ABS# (0-10)
[2023-10-28 22:16] LABS: Amphetamines Screen Urine Negative (Negative); Barbiturates Screen Urine Negative (Negative); Benzodiazepines Screen Urine Negative (Negative); Bilirubin Urine Neg (Negative); Blood Urine Neg (Negative); Cocaine Screen Urine Negative (Negative); Glucose Urine UA Norm (Normal); Ketones Urine Negative (Negative); Leukocyte Esterase Urine Negative (Negative); Nitrate Urine Negative (Negative); Opiate Screen Urine Negative (Negative); PCP Screen Urine Negative (Negative); Protein Urine Neg (Negative); THC Screen Urine Negative (Negative); Urine Appearance Clear (CLEAR); Urine Color Yellow (Yellow); Urobilinogen Urine Neg (Negative); pH Urine 5 (5-7)
[2023-10-28] MEDS: metoprolol tartrate 1 mg/1 mL SDV 5 mL 2.5 MG IVP (22:28)
[2023-10-28 22:52] VITALS: BP 130/94; PULSE 98; RESP 16; O2SAT 99
== END 2023-10-28 23:04 | disposition home or self-care (01) ==
PROVIDERS: Emergency Provider Internal Medicine; PCP Nurse Practitioner Family
DX: I10 Essential (primary) hypertension (principal); R51.9 Headache, unspecified; R00.0 Tachycardia, unspecified; Z79.84 Long term (current) use of oral hypoglycemic drugs
CPT/HCPCS: 80053; 80306; 81003; 84443; 84484; 85025; 93005; 96374; 96375; 99285; J0360; J3490

== ENCOUNTER 2024-03-23 23:00 | Emergency (ER) | payer BC, MEDICAID, SELFPAY ==
[2024-03-23 23:05] VITALS: BP 191/129; PULSE 77; RESP 16; TEMP 36.3; O2SAT 99; BMI 28.7
[2024-03-23 23:41] VITALS: BP 196/130; PULSE 91; RESP 27; O2SAT 97
--- NOTE | 2024-03-23 23:49 | ECG_ITS ---
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 Measurements Intervals [place] Rate: 74 P: 42 [place]: 171 QRS: -11 QRSD: 86 T: 18 QT: 379 QTc: 423 Interpretive Statements SINUS RHYTHM POSSIBLE LEFT ATRIAL ENLARGEMENT [-0.1mV P-WAVE IN V1/V2] POSSIBLE LEFT VENTRICULAR HYPERTROPHY [VOLTAGE CRITERIA PLUS LAE OR QRS WIDENING] POSSIBLE ANTERIOR MYOCARDIAL INFARCTION , PROBABLY OLD [30 ms Q WAVE IN V3/V4, OR R < 0.2 mV IN V4] Compared to ECG 10/28/2023 21:08:30 Myocardial infarct finding now present Sinus tachycardia no longer present ST (T wave) deviation no longer present Electronically Signed On 03-25-2024 0:21:27 CDT by Idalmis Sumner M.D. [email or web address]
[2024-03-24] MEDS: hyDRALAzine 25 mg Tablet PO (00:04)
[2024-03-24 00:11] VITALS: BP 166/134; PULSE 90; RESP 26; O2SAT 96
[2024-03-24 00:13] LABS: Basophils % 0.5 %; Eosinophils # 0.1 10^3/uL (0.0-0.8); Eosinophils % 1.1 %; Lymphocytes # 2.7 10^3/uL (0.8-4.8); Lymphocytes % 33.3 %; Mean Corpuscular HGB Conc 34.4 g/dL (30-55); Mean Corpuscular Hemoglobin 31.8 pg (27-33); Mean Corpuscular Volume 92.2 fl (85-98); Monocytes # 0.6 10^3/uL (0.2-0.9); Monocytes % 7.7 %; Neutrophils # 4.66 10^3/uL (1.8-7.7); Neutrophils % 57.2 %; Nucleated Red Blood Cells % 0 %; Platelet Count 362 10^3/cmm (157-399); Red Blood Count 4.88 10^6/uL (3.85-5.65); Red Cell Distribution Width 12.8 % (12.1-15.1); White Blood Count 8.16 10^3/uL (3.29-11.43)
--- NOTE | 2024-03-24 00:20 | W.ED.GENADLT ---
Documented by User: CHELSEA Flores 03/24/24 00:23 HPI - General Adult General: Chief complaint: General Medical Stated complaint: High B/P Time Seen by Provider: 03/23/24 23:48 Source: patient Mode of arrival: ambulatory Limitations: no limitations History of Present Illness: Patient is a 48-year-old female who presents the emergency department with elevated blood pressure readings for the past 2 days. Patient states that she has had issues with her blood pressure like this in the past, and has been seen multiple times in the ED. States that sometimes she will come in and her systolic is well over 200. She takes clonidine and lisinopril and has been taking these as prescribed. States he has had these adjusted every time after being discharged from the ED with elevated blood pressure. With her most recent episode, she states she felt getting high when she was beginning to have a headache, nausea, and visual changes/blurred vision. At this time she is still having symptoms, initial BP on arrival is 191/129. Rest of her vitals unremarkable. She is not having any chest pain, shortness of breath, palpitations, or other concerning symptoms. No history of heart attacks or strokes. No other concerning historical elements to report at this time. MD complaint: Elevated blood pressure Onset (ago): day(s) (2) Associated symptoms: Reports headache(s) and nausea; Deny chest pain, dyspnea, rash, palpitations or vomiting Treatments prior to arrival: other (Lisinopril/clonidine) Related Data Home Medications Medication Instructions Recorded Confirmed triamcinolone acetonide 0.1 % 1 applic topical BID 02/05/22 11/17/23 topical ointment diphenhydramine HCl 25 mg capsule 25 mg PO DAILY 07/17/23 11/17/23 (Benadryl) Previous Rx's Medication Instructions Recorded clonidine HCl 0.1 mg tablet See Rx Instructions .Route 07/17/23 .COMPLEX #20 tabs hydrochlorothiazide 25 mg tablet 25 mg PO QAM Hypertension #30 tabs 07/18/23 hydrochlorothiazide 25 mg tablet 25 mg PO DAILY Elevated blood 10/28/23 pressure #90 tabs metoprolol tartrate 25 mg tablet 12.5 mg (1/2 x 25 mg) PO BID 10/28/23 Elevated Blood pressure #30 tabs levothyroxine 50 mcg tablet 50 mcg PO DAILY #112 tabs 11/17/23 metformin 500 mg tablet 1,000 mg (2 x 500 mg) PO BID #360 11/17/23 tabs pen needle, diabetic 32 gauge x #100 ea 11/17/23 (BD Ultra-Fine Coby Pen Needle) lisinopril 20 mg tablet See Rx Instructions .Route 01/08/24 .COMPLEX #90 tabs liraglutide 0.6 mg/0.1 mL (18 mg/3 See Rx Instructions .Route 02/23/24 mL) subcutaneous pen injector .COMPLEX #9 mL (Victoza 3-Bear) Allergies Allergy/AdvReac Type Severity Reaction Status Date / Time No Known Allergies Allergy Verified 11/17/23 07:40 Review of Systems General: Reports: 10 or more systems reviewed and unremarkable except in HPI and below Const: Denies: fever(s), chills or fatigue Eyes: Reports: blurry vision ENMT: Denies: throat pain, ear or mastoid pain or nasal discharge Card: Reports: other (Elevated blood pressure reading); Denies: chest pain, palpitations, swelling of feet/ankles or lightheadedness Resp: Denies: dyspnea, productive cough or wheezing GI: Reports: nausea; Denies: abdominal pain, vomiting, diarrhea or constipation : Denies: flank pain, difficulty voiding, dysuria or urinary frequency Musc: Denies: neck pain, back pain or joint pain Skin/Breast: Denies: rash Neuro: Reports: headache(s); Denies: numbness in extremities or weakness in extremities PFS ED PFSH: Medical History Well woman exam with routine gynecological exam Aftercare following surgery of the genitourinary system Hypertension H/O brain tumor benign tumor removed Urinary, incontinence, stress female Surgical History H/O vaginal surgery 12/20/2020- single incision mid urethral sling performed by Dr. Rolon at [facility] H/O section 2013 History of endometrial ablation 2015 Family History Brother Thyroid disease Sister Thyroid disease Mother Thyroid disease Grandmother Breast cancer maternal great Family/Other Breast cancer maternal great aunt Denies family history of Colon cancer Ovarian cancer Diabetes Clotting disorder Heart disease Hyperlipidemia Anesthesia complication Bleeding disorder Hypertension Uterine cancer Stroke Social History Smoking and tobacco/nicotine status: never used tobacco/nicotine Alcohol intake: never Substance/Drug Use: never Physical Exam Const: COMMON NORMALS: no acute distress, patient oriented x3 and no limitations GENERAL APPEARANCE: cooperative, comfortable and well developed ORIENTATION/CONSCIOUSNESS: Yes awake, Yes oriented to person, Yes oriented to place and Yes oriented to time HENMT: COMMON NORMALS: normocephalic, atraumatic and hearing grossly normal bilaterally HEAD & SCALP: normocephalic and atraumatic Eye: COMMON NORMALS: Equal, round and reactive pupils present, EOMs intact bilaterally and conjunctivae normal CONJUNCTIVA: Yes conjunctivae normal PUPIL: Yes Equal, round and reactive pupils present Neck/C-Spine: COMMON NORMALS: full ROM, supple and no JVD Resp: COMMON NORMALS: normal respiratory effort, No retractions, No use of accessory muscles and clear to auscultation bilaterally AUSCULTATION: clear to auscultation bilaterally Cardio: COMMON NORMALS: no JVD, regular rate, regular rhythm, No clicks present (Cardio), No murmurs present (Cardio) and No rub (Cardio) RATE: regular rate RHYTHM: regular rhythm GI: COMMON NORMALS: Normal to inspection, nondistended, normoactive bowel sounds present, Soft to palpation and non-tender AUSCULTATION: Yes normoactive bowel sounds PALPATION: Yes Soft to palpation RECTAL EXAM: deferred Extremity: COMMON NORMALS: normal to inspection, full ROM and capillary refill normal Neuro: COMMON NORMALS: patient oriented x3, CN's II-XII intact bilaterally, moves all extremities, no focal motor deficits and no sensory deficits noted SENSORIUM/ORIENTATION: Yes oriented to person, Yes oriented to place and Yes oriented to time Psych: COMMON NORMALS: mental status grossly normal and Normal thought process present THOUGHT PROCESS: Normal thought process present Skin: COMMON NORMALS: no rashes or lesions noted GENERAL SKIN EXAM: no rashes or lesions noted Course Vital Signs: Vital signs: Vital Signs Temperature 97.4 F L 03/23/24 23:05 Pulse Rate 99 03/24/24 01:41 Respiratory Rate 17 03/24/24 01:41 Blood Pressure 134/83 03/24/24 01:41 Pulse Oximetry 97 03/24/24 01:41 Oxygen Delivery Me thod Room Air 03/24/24 01:41 [facility] - General Adult Lab Data 03/23/24 00:00 03/23/24 00:00 Laboratory Results WBC 8.16 10^3/uL (3.29-11.43) 03/23/24 00:00 RBC 4.88 10^6/uL (3.85-5.65) 03/23/24 00:00 Hgb 15.50 g/dL (11.27-16.99) 03/23/24 00:00 Hct 45.0 % (36-47) 03/23/24 00:00 MCV 92.2 fl (85-98) 03/23/24 00:00 MCH 31.8 pg (27-33) 03/23/24 00:00 MCHC 34.4 g/dL (30-55) 03/23/24 00:00 RDW 12.8 % (12.1-15.1) 03/23/24 00:00 Plt Count 362 10^3/cmm (157-399) 03/23/24 00:00 MPV 10.0 fL (7.4-10.4) 03/23/24 00:00 Neut % (Auto) 57.2 % 03/23/24 00:00 Lymph % (Auto) 33.3 % 03/23/24 00:00 Latimer % (Auto) 7.7 % 03/23/24 00:00 Eos % (Auto) 1.1 % 03/23/24 00:00 Baso % (Auto) 0.5 % 03/23/24 00:00 Neut # (Auto) 4.66 10^3/uL (1.8-7.7) 03/23/24 00:00 Lymph # (Auto) 2.7 10^3/uL (0.8-4.8) 03/23/24 00:00 Latimer # (Auto) 0.6 10^3/uL (0.2-0.9) 03/23/24 00:00 Eos # (Auto) 0.1 10^3/uL (0.0-0.8) 03/23/24 00:00 Baso # (Auto) 0.0 10^3/uL (0.0-0.1) 03/23/24 00:00 Nucleated RBC % (auto) 0 % 03/23/24 00:00 Nucleated RBCs # 0.0 /100WBC 03/23/24 00:00 Sodium 140 mmol/L (136-145) 03/23/24 00:00 Potassium 3.9 mmol/L (3.5-5.1) 03/23/24 00:00 Chloride 105 mmol/L (98-107) 03/23/24 00:00 Carbon Dioxide 22 mmol/L (22-29) 03/23/24 00:00 Anion Gap 16.9 (5-19) 03/23/24 00:00 BUN 17 mg/dL (6-20) 03/23/24 00:00 Creatinine 0.8 mg/dL (0.5-0.9) 03/23/24 00:00 GFR Calculation 76.6 mL/min (90-130) L 03/23/24 00:00 Glucose 94 mg/dL (65-115) 03/23/24 00:00 Calculated Osmolality 291 mOsm/kg (285-295) 03/23/24 00:00 Calcium 9.6 mg/dL (8.5-10.5) 03/23/24 00:00 Total Bilirubin 0.5 mg/dL (0.15-1.2) 03/23/24 00:00 AST 14 U/L (0-32) 03/23/24 00:00 ALT 19 U/L (0-33) 03/23/24 00:00 Alkaline Phosphatase 75 U/L (35-105) 03/23/24 00:00 Total Protein 7.4 g/dL (6.6-8.7) 03/23/24 00:00 Albumin 4.4 g/dL (3.5-5.2) 03/23/24 00:00 Globulin 3.0 g/dL (1.3-4.6) 03/23/24 00:00 Urine Color Yellow (Yellow) 03/24/24:28 Urine Appearance Clear (CLEAR) 03/24/24:28 Urine pH 5.5 (5-7) 03/24/24 01:28 Ur Specific [place] 1.004 (1.005-1.030) L 08/21/24 01:28 Urine Protein Negative (Negative) 03/24/24 01:28 Urine Glucose (UA) Negative (Normal) 03/24/24 01:28 Urine Ketones Negative (Negative) 03/24/24 01:28 Urine Blood Negative (Negative) 03/24/24 01:28 Urine Nitrate Negative (Negative) 03/24/24 01:28 Urine Bilirubin Negative (Negative) 03/24/24 01:28 Urine Urobilinogen 0.2 mg/dL (Negative) 03/24/24 01:28 Ur Leukocyte Esterase Negative (Negative) 03/24/24 01:28 Urine RBC 0-2 /hpf (0-2) 03/24/24 01:28 Urine WBC 0-5 /hpf (0-5) 03/24/24 01:28 Ur Squamous Epith Cells 0-5 /hpf (0-5) 03/24/24 01:28 Amorphous Sediment Not Reportable 03/24/24 01:28 Urine Bacteria None seen /hpf (NONE) 03/24/24 01:28 Hyaline Casts 0-4 /lpf H 03/24/24 01:28 Discharge Plan Discharge Patient Disposition: Home Clinical Impression: Essential hypertension Headache Qualifiers: Headache type: unspecified Headache chronicity pattern: acute headache Intractability: not intractable Qualified Code(s): R51.9 - Headache, unspecified Condition: Stable Prescriptions: No Action triamcinolone acetonide 0.1 % ointment 1 applic topical BID metformin 500 mg tablet 1,000 mg PO BID Qty: 360 1RF levothyroxine 50 mcg tablet 50 mcg PO DAILY Qty: 112 2RF Rx Instructions: 1 tab fri-friday, 1.5 tab on Friday, 2 tablet friday (DME) pen needle, diabetic [BD Ultra-Fine Coby Pen Needle] 32 gauge x 5/32 needle See Rx Instructions .ROUTE .COMPLEX Qty: 100 3RF Dose Instruction: USE DIRECTED Rx Instructions: USE DIRECTED lisinopril 20 mg tablet See Rx Instructions .ROUTE .COMPLEX Qty: 90 1RF Dose Instruction: TAKE 1 TABLET BY MOUTH EVERY DAY Rx Instructions: TAKE 1 TABLET BY MOUTH EVERY DAY Victoza 3-Bear 0.6 mg/0.1 mL (18 mg/3 mL) pen injector See Rx Instructions .ROUTE .COMPLEX Qty: 9 1RF Dose Instruction: inject 1.8mg (0.3ml) SUBCUTANEOUSLY EVERY DAY Rx Instructions: inject 1.8mg (0.3ml) SUBCUTANEOUSLY EVERY DAY Benadryl 25 mg Capsule 25 mg PO DAILY clonidine HCl 0.1 mg tablet See Rx Instructions .ROUTE .COMPLEX Qty: 20 0RF Rx Instructions: Please take 1 tablet by mouth 3 times a day as needed for blood pressure greater than 160/100 hydrochlorothiazide 25 mg tablet 25 mg PO QAM Qty: 30 0RF hydrochlorothiazide 25 mg tablet 25 mg PO DAILY Qty: 90 0RF metoprolol tartrate 25 mg tablet 12.5 mg PO BID Qty: 30 0RF Discharge Orders: Discharge ED (Routine); Ordered 03/24/24 Ordered By: Filippo Louis Referrals: Angelita Bustillo, HVAC TECH [Primary Care Provider] - 1 week Patient Instructions: Hypertension, Headache Activity Restrictions/Additional Instructions: Please keep a blood pressure log and take it to your next appointment with your family practice doctor. Your blood pressure medicine may need to be adjusted. Thank you for choosing [facility] for your healthcare needs today. Please realize that you were seen in the emergency department and that we are providing you with an emergency medical screening exam and this may not be a complete and all exclusive of all testing and/or medical workup we may need to determine your element or severity of your illness. It is very important that you follow-up as instructed with your primary care provider or specialist for the additional evaluation and to discuss your medical treatment plan. You may return to the emergency department should you have concerns or if your condition changes or worsens in any way. Coding Level of Care Code ED Doorperson Or Luggage Porter for Chg Fwd Documented by User: Filippo Louis DO 03/24/24 02:06 HPI - General Adult General: Chief complaint: General Medical Stated complaint: High B/P Time Seen by Provider: 03/23/24 23:48 Related Data Home Medications Medication Instructions Recorded Confirmed triamcinolone acetonide 0.1 % 1 applic topical BID 02/05/22 11/17/23 topical ointment diphenhydramine HCl 25 mg capsule 25 mg PO DAILY 07/17/23 11/17/23 (Benadryl) Previous Rx's Medication Instructions Recorded clonidine HCl 0.1 mg tablet See Rx Instructions .Route 07/17/23 .COMPLEX #20 tabs hydrochlorothiazide 25 mg tablet 25 mg PO QAM Hypertension #30 tabs 07/18/23 hydrochlorothiazide 25 mg tablet 25 mg PO DAILY Elevated blood 10/28/23 pressure #90 tabs metoprolol tartrate 25 mg tablet 12.5 mg (1/2 x 25 mg) PO BID 10/28/23 Elevated Blood pressure #30 tabs levothyroxine 50 mcg tablet 50 mcg PO DAILY #112 tabs 11/17/23 metformin 500 mg tablet 1,000 mg (2 x 500 mg) PO BID #360 11/17/23 tabs pen needle, diabetic 32 gauge x #100 ea 11/17/23 (BD Ultra-Fine Coby Pen Needle) lisinopril 20 mg tablet See Rx Instructions .Route 01/08/24 .COMPLEX #90 tabs liraglutide 0.6 mg/0.1 mL (18 mg/3 See Rx Instructions .Route 02/23/24 mL) subcutaneous pen injector .COMPLEX #9 mL (Victoza 3-Bear) Allergies Allergy/AdvReac Type Severity Reaction Status Date / Time No Known Allergies Allergy Verified 11/17/23 07:40 [facility] ED PFSH: Medical History Well woman exam with routine gynecological exam Aftercare following surgery of the genitourinary system Hypertension H/O brain tumor benign tumor removed Urinary, incontinence, stress female Surgical History H/O vaginal surgery 12/20/2020- single incision mid urethral sling performed by Dr. Rolon at [facility] H/O section 2013 History of endometrial ablation 2015 Family History Brother Thyroid disease Sister Thyroid disease Mother Thyroid disease Grandmother Breast cancer maternal great Family/Other Breast cancer maternal great aunt Denies family history of Colon cancer Ovarian cancer Diabetes Clotting disorder Heart disease Hyperlipidemia Anesthesia complication Bleeding disorder Hypertension Uterine cancer Stroke Social History Smoking and tobacco/nicotine status: never used tobacco/nicotine Alcohol intake: never Substance/Drug Use: never Course Vital Signs: Vital signs: Vital Signs Temperature 97.4 F L 03/23/24 23:05 Pulse Rate 99 03/24/24 01:41 Respiratory Rate 17 03/24/24 01:41 Blood Pressure 134/83 03/24/24 01:41 Pulse Oximetry 97 03/24/24 01:41 Oxygen Delivery Me thod Room Air 03/24/24 01:41 MDM - General Adult Medical Decision Making Patient's care turned over to myself at shift change, lab work was reviewed, patient was given medication here for blood pressure which improved to 134/83. Lab work was reviewed with the patient. Patient is feeling better. Patient be discharged home. Lab Data 03/23/24 00:00 03/23/24 00:00 Laboratory Results WBC 8.16 10^3/uL (3.29-11.43) 03/23/24 00:00 RBC 4.88 10^6/uL (3.85-5.65) 03/23/24 00:00 Hgb 15.50 g/dL (11.27-16.99) 03/23/24 00:00 Hct 45.0 % (36-47) 03/23/24 00:00 MCV 92.2 fl (85-98) 03/23/24 00:00 MCH 31.8 pg (27-33) 03/23/24 00:00 MCHC 34.4 g/dL (30-55) 03/23/24 00:00 RDW 12.8 % (12.1-15.1) 03/23/24 00:00 Plt Count 362 10^3/cmm (157-399) 03/23/24 00:00 MPV 10.0 fL (7.4-10.4) 03/23/24 00:00 Neut % (Auto) 57.2 % 03/23/24 00:00 Lymph % (Auto) 33.3 % 03/23/24 00:00 Latimer % (Auto) 7.7 % 03/23/24 00:00 Eos % (Auto) 1.1 % 03/23/24 00:00 Baso % (Auto) 0.5 % 03/23/24 00:00 Neut # (Auto) 4.66 10^3/uL (1.8-7.7) 03/23/24 00:00 Lymph # (Auto) 2.7 10^3/uL (0.8-4.8) 03/23/24 00:00 Latimer # (Auto) 0.6 10^3/uL (0.2-0.9) 03/23/24 00:00 Eos # (Auto) 0.1 10^3/uL (0.0-0.8) 03/23/24 00:00 Baso # (Auto) 0.0 10^3/uL (0.0-0.1) 03/23/24 00:00 Nucleated RBC % (auto) 0 % 03/23/24 00:00 Nucleated RBCs # 0.0 /100WBC 03/23/24 00:00 Sodium 140 mmol/L (136-145) 03/23/24 00:00 Potassium 3.9 mmol/L (3.5-5.1) 03/23/24 00:00 Chloride 105 mmol/L (98-107) 03/23/24 00:00 Carbon Dioxide 22 mmol/L (22-29) 03/23/24 00:00 Anion Gap 16.9 (5-19) 03/23/24 00:00 BUN 17 mg/dL (6-20) 03/23/24 00:00 Creatinine 0.8 mg/dL (0.5-0.9) 03/23/24 00:00 GFR Calculation 76.6 mL/min (90-130) L 03/23/24 00:00 Glucose 94 mg/dL (65-115) 03/23/24 00:00 Calculated Osmolality 291 mOsm/kg (285-295) 03/23/24 00:00 Calcium 9.6 mg/dL (8.5-10.5) 03/23/24 00:00 Total Bilirubin 0.5 mg/dL (0.15-1.2) 03/23/24 00:00 AST 14 U/L (0-32) 03/23/24 00:00 ALT 19 U/L (0-33) 03/23/24 00:00 Alkaline Phosphatase 75 U/L (35-105) 03/23/24 00:00 Total Protein 7.4 g/dL (6.6-8.7) 03/23/24 00:00 Albumin 4.4 g/dL (3.5-5.2) 03/23/24 00:00 Globulin 3.0 g/dL (1.3-4.6) 03/23/24 00:00 Urine Color Yellow (Yellow) 03/24/24 01:28 Urine Appearance Clear (CLEAR) 03/24/24 01:28 Urine pH 5.5 (5-7) 03/24/24 01:28 Ur Specific [place] 1.004 (1.005-1.030) L 03/24/24 01:28 Urine Protein Negative (Negative) 03/24/24 01:28 Urine Glucose (UA) Negative (Normal) 03/24/24 01:28 Urine Ketones Negative (Negative) 03/24/24 01:28 Urine Blood Negative (Negative) 03/24/24 01:28 Urine Nitrate Negative (Negative) 03/24/24 01:28 Urine Bilirubin Negative (Negative) 03/24/24 01:28 Urine Urobilinogen 0.2 mg/dL (Negative) 03/24/24 01:28 Ur Leukocyte Esterase Negative (Negative) 03/24/24 01:28 Urine RBC 0-2 /hpf (0-2) 03/24/24 01:28 Urine WBC 0-5 /hpf (0-5) 03/24/24 01:28 Ur Squamous Epith Cells 0-5 /hpf (0-5) 03/24/24 01:28 Amorphous Sediment Not Reportable 03/24/24 01:28 Urine Bacteria None seen /hpf (NONE) 03/24/24 01:28 Hyaline Casts 0-4 /lpf H 03/24/24 01:28 All radiology interpretation(s) finalized by discharge Discharge Plan Discharge Patient Disposition: Home Clinical Impression: Essential hypertension Headache Qualifiers: Headache type: unspecified Headache chronicity pattern: acute headache Intractability: not intractable Qualified Code(s): R51.9 - Headache, unspecified Condition: Stable Prescriptions: No Action triamcinolone acetonide 0.1 % ointment 1 applic topical BID metformin 500 mg tablet 1,000 mg PO BID Qty: 360 1RF levothyroxine 50 mcg tablet 50 mcg PO DAILY Qty: 112 2RF Rx Instructions: 1 tab fri-friday, 1.5 tab on Friday, 2 tablet friday (DME) pen needle, diabetic [BD Ultra-Fine Coby Pen Needle] 32 gauge x 5/32 needle See Rx Instructions .ROUTE .COMPLEX Qty: 100 3RF Dose Instruction: USE DIRECTED Rx Instructions: USE DIRECTED lisinopril 20 mg tablet See Rx Instructions .ROUTE .COMPLEX Qty: 90 1RF Dose Instruction: TAKE 1 TABLET BY MOUTH EVERY DAY Rx Instructions: TAKE 1 TABLET BY MOUTH EVERY DAY Victoza 3-Bear 0.6 mg/0.1 mL (18 mg/3 mL) pen injector See Rx Instructions .ROUTE .COMPLEX Qty: 9 1RF Dose Instruction: inject 1.8mg (0.3ml) SUBCUTANEOUSLY EVERY DAY Rx Instructions: inject 1.8mg (0.3ml) SUBCUTANEOUSLY EVERY DAY Benadryl 25 mg Capsule 25 mg PO DAILY clonidine HCl 0.1 mg tablet See Rx Instructions .ROUTE .COMPLEX Qty: 20 0RF Rx Instructions: Please take 1 tablet by mouth 3 times a day as needed for blood pressure greater than 160/100 hydrochlorothiazide 25 mg tablet 25 mg PO QAM Qty: 30 0RF hydrochlorothiazide 25 mg tablet 25 mg PO DAILY Qty: 90 0RF metoprolol tartrate 25 mg tablet 12.5 mg PO BID Qty: 30 0RF Discharge Orders: Discharge ED (Routine); Ordered 03/24/24 Ordered By: Filippo Louis Referrals: Angelita Bustillo FNP [Primary Care Provider] - 1 week Patient Instructions: Hypertension, Headache Activity Restrictions/Additional Instructions: Please keep a blood pressure log and take it to your next appointment with your family practice doctor. Your blood pressure medicine may need to be adjusted. Thank you for choosing [facility] for your healthcare needs today. Please realize that you were seen in the emergency department and that we are providing you with an emergency medical screening exam and this may not be a complete and all exclusive of all testing and/or medical workup we may need to determine your element or severity of your illness. It is very important that you follow-up as instructed with your primary care provider or specialist for the additional evaluation and to discuss your medical treatment plan. You may return to the emergency department should you have concerns or if your condition changes or worsens in any way. Coding Level of Care Code ED Doorperson Or Luggage Porter for [place]
[2024-03-24 00:30] LABS: Alanine Aminotransferase 19 U/L (0-33); Albumin Level 4.4 g/dL (3.5-5.2); Alkaline Phosphatase 75 U/L (35-105); Aspartate Amino Transferase 14 U/L (0-32); Blood Urea Nitrogen 17 mg/dL (6-20); Calcium 9.6 mg/dL (8.5-10.5); Carbon Dioxide 22 mmol/L (22-29); Chloride 105 mmol/L (98-107); Creatinine Clr Calc Pharmacy 92.1506; Glomerular Filtration Rate 76.6 mL/min (90-130); Glucose 94 mg/dL (65-115); Osmolality Calculated 291 mOsm/kg (285-295); Sodium 140 mmol/L (136-145); Total Bilirubin 0.5 mg/dL (0.15-1.2); Total Protein 7.4 g/dL (6.6-8.7)
[2024-03-24 00:32] LABS: Anion Gap 16.9 (5-19); Potassium 3.9 mmol/L (3.5-5.1)
[2024-03-24 00:41] VITALS: BP 167/123; PULSE 77; RESP 26; O2SAT 98
[2024-03-24 01:11] VITALS: BP 166/111; PULSE 82; RESP 20; O2SAT 99
[2024-03-24] MEDS: hyDRALAzine 20 mg/mL INJ 1 mL IVP (01:25)
[2024-03-24 01:40] LABS: Charge for UA Resulting for Rev
[2024-03-24 01:41] VITALS: BP 134/83; PULSE 99; RESP 17; O2SAT 97
[2024-03-24 01:43] LABS: Bilirubin Urine Negative (Negative); Blood Urine Negative (Negative); Glucose Urine UA Negative (Normal); Ketones Urine Negative (Negative); Leukocyte Esterase Urine Negative (Negative); Nitrate Urine Negative (Negative); Protein Urine Negative (Negative); Specific Gravity, Urine 1.004 (1.005-1.030); Urine Appearance Clear (CLEAR); Urine Color Yellow (Yellow); Urobilinogen Urine 0.2 mg/dL (Negative); pH Urine 5.5 (5-7)
[2024-03-24 01:48] LABS: Bacteria Urine None Seen /hpf; Hyaline Casts Urine 0-4 /lpf; RBC Urine 0-2 /hpf (0-2); Squamous Epithelial Cell Urine 0-5 /hpf (0-5); WBC Urine 0-5 /hpf (0-5)
[2024-03-24 02:00] VITALS: BP 125/66; PULSE 105; RESP 16; O2SAT 98
== END 2024-03-24 02:22 | disposition home or self-care (01) ==
PROVIDERS: Emergency Provider Physician Assistant; PCP Nurse Practitioner Family
DX: I10 Essential (primary) hypertension (principal); R51.9 Headache, unspecified; Z79.84 Long term (current) use of oral hypoglycemic drugs
CPT/HCPCS: 36415; 80053; 81003; 81015; 85025; 93005; 96374; 99284; J0360

== ENCOUNTER 2024-05-14 13:14 | Outpatient (CLI) | payer BC, MEDICAID, SELFPAY ==
[2024-05-14 13:59] LABS: Estmated Average Glucose 97
[2024-05-14 14:16] LABS: Alanine Aminotransferase 15 U/L (0-33); Albumin Level 4.1 g/dL (3.5-5.2); Alkaline Phosphatase 65 U/L (35-105); Anion Gap 12.6 (5-19); Aspartate Amino Transferase 10 U/L (0-32); Blood Urea Nitrogen 13 mg/dL (6-20); Carbon Dioxide 25 mmol/L (22-29); Chloride 103 mmol/L (98-107); Chol HDL Ratio 4.21 mg/dL (0.0-4.40); Cholesterol 223 mg/dL (0-200); Globulin 2.7 g/dL (1.3-4.6); Glomerular Filtration Rate 76.6 mL/min (90-130); Glucose 113 mg/dL (65-115); HDL Cholesterol 53 mg/dL (60-100); LDL Cholesterol Calculated 133 mg/dL (50-129); LDL HDL Ratio 2.51 RATIO (0.00-3.22); Osmolality Calculated 285 mOsm/kg (285-295); Potassium 3.6 mmol/L (3.5-5.1); Sodium 137 mmol/L (136-145); Thyroid Stimulating Hormone 1.42 uIU/mL (0.27-4.20); Total Bilirubin 0.6 mg/dL (0.15-1.2); Total Protein 6.8 g/dL (6.6-8.7); Triglycerides 185 mg/dL (0-150)
[2024-05-14 14:18] LABS: Creatinine Urine, Random 209 mg/dL (28-217); Microalbum Creatinine Ratio Ur 5 mg/dL (0-20); Microalbumin Random Urine 1 ug/dL (0-20)
[2024-05-14 14:52] LABS: Free T4 Free Thyroxine 1.02 ng/dL (0.82-1.77)
== END 2024-05-14 13:15 | disposition home or self-care (01) ==
LOC: LAB 13:15
PROVIDERS: PCP Nurse Practitioner Family; Visit Provider Internal Medicine
DX: E03.8 Other specified hypothyroidism (principal); R93.89 Abnormal findings on diagnostic imaging of other specified body structures; I16.0 Hypertensive urgency; I10 Essential (primary) hypertension; E78.5 Hyperlipidemia, unspecified
CPT/HCPCS: 36415; 80053; 80061; 82044; 83036; 84439; 84443

== ENCOUNTER 2024-11-11 16:42 | Outpatient (CLI) | payer BC, MEDICAID, SELFPAY ==
[2024-11-11 17:49] LABS: Alanine Aminotransferase 14 U/L (0-33); Albumin Level 4.3 g/dL (3.5-5.2); Alkaline Phosphatase 70 U/L (35-105); Aspartate Amino Transferase 12 U/L (0-32); Blood Urea Nitrogen 15 mg/dL (6-20); Calcium 9.1 mg/dL (8.5-10.5); Carbon Dioxide 20 mmol/L (22-29); Chloride 107 mmol/L (98-107); Globulin 2.7 g/dL (1.3-4.6); Glomerular Filtration Rate 76.2 mL/min (90-130); Glucose 117 mg/dL (65-115); Osmolality Calculated 290 mOsm/kg (285-295); Sodium 139 mmol/L (136-145); Thyroid Stimulating Hormone 1.35 uIU/mL (0.27-4.20); Total Bilirubin 0.7 mg/dL (0.15-1.2)
[2024-11-11 17:57] LABS: Creatinine Urine, Random 229 mg/dL (28-217); Microalbum Creatinine Ratio Ur 4 mg/dL (0-20); Microalbumin Random Urine 1 ug/dL (0-20)
[2024-11-11 19:46] LABS: Estmated Average Glucose 91; Hemoglobin A1C 4.8 % (4.0-6.0)
[2024-11-11 20:12] LABS: Anion Gap 15.4 (5-19); Potassium 3.4 mmol/L (3.5-5.1)
[2024-11-11 20:17] LABS: Free T4 Free Thyroxine 0.91 ng/dL (0.82-1.77)
== END 2024-11-11 16:43 | disposition home or self-care (01) ==
PROVIDERS: PCP Nurse Practitioner Family; Visit Provider Internal Medicine
DX: E03.8 Other specified hypothyroidism (principal); I10 Essential (primary) hypertension
CPT/HCPCS: 36415; 80053; 82044; 83036; 84439; 84443

== ENCOUNTER 2024-11-15 17:18 | Emergency (ER) | payer BC, MEDICAID, SELFPAY ==
[2024-11-15] VITALS (9 sets, daily range): BP systolic 141–201; BP diastolic 83–131; PULSE 5–98; RESP 18; TEMP 36.7; O2SAT 97–100; BMI 25.8
--- NOTE | 2024-11-15 17:20 | ECG_ITS ---
[facility] Date: 2024-11-15 Pat Name: Charito Enriquez Department: Room: Gender: Female Diabetic Educator: : 1975 Requested By: Caty Saenz Order Number: [id number] Bran MD: Idalmis Sumner M.D. Measurements Intervals [place] Rate: 89 P: 43 [place]: 179 QRS: -4 QRSD: 88 T: 30 QT: 323 QTc: 395 Interpretive Statements SINUS RHYTHM POSSIBLE LEFT ATRIAL ENLARGEMENT [-0.1mV P-WAVE IN V1/V2] POSSIBLE LEFT VENTRICULAR HYPERTROPHY [VOLTAGE CRITERIA PLUS LAE OR QRS WIDENING] POSSIBLE ANTERIOR MYOCARDIAL INFARCTION , PROBABLY OLD [30 ms Q WAVE IN V3/V4, OR R < 0.2 mV IN V4] Compared to ECG 03/23/2024 23:54:18 No significant changes Electronically Signed On 11-15-2024 21:29:56 CDT by Idalmis Sumner M.D. [email or web address]
--- NOTE | 2024-11-15 17:37 | XRR_ITS ---
PROCEDURE INFORMATION: Exam: XR Chest Exam date and time: 11/15/2024 5:39 PM Age: 49 years old Clinical indication: Other: HTN; Additional info: Hypertension TECHNIQUE: Imaging protocol: Radiologic exam of the chest. Views: 1 view. COMPARISON: No relevant prior studies available. FINDINGS: Tubes, catheters and devices: Overlying monitor leads. Lungs: Unremarkable. No infiltrate or consolidation. Normal pulmonary vascularity. Pleural spaces: Unremarkable. No pleural effusion. No pneumothorax. Heart/Mediastinum: Unremarkable. No cardiomegaly. Bones/joints: Visualized osseous structures show no acute abnormality. XR/XR chest 1V portable [id number] IMPRESSION: No acute cardiopulmonary abnormality.
--- NOTE | 2024-11-15 17:38 | ED_ITS ---
Documented by User: Radu Morris, 11/16/24 06:46 HPI - General Adult 2 General: Chief complaint: General Medical Stated complaint: high bp Time Seen by Provider: 11/15/24 17:30 History of Present Illness: 49-year-old female presents emergency ro om complaining of elevated blood pressure for the last few days. She is on lisinopril and also takes hydrochlorothiazide she takes clonidine for breakthrough elevated blood pressures. She had previously been on metoprolol and hydrochlorothiazide she tells me she is not taking those anymore. She did take clonidine today because her blood pressure was elevated but did not notice any significant improvement. Patient is diabetic she is non-smoker she has generalized aches throughout her body she feels a slight pressure sensation in her chest at times she has no shortness of breath no radiation of discomfort. No difficulty with speech balance or vision. No focal neurologic complaints. She does have a mild headache. Associated symptoms: Deny chest pain, dyspnea or rash Related Data Home Medications ?Medication ?Instructions ?Recorded ?Confirmed triamcinolone acetonide 0.1 % 1 applic topical BID 12/2305/18/24 topical ointment diphenhydramine HCl 25 mg capsule 25 mg PO DAILY 07/1705/18/24 (Benadryl) Previous Rx's ?Medication ?Instructions ?Recorded clonidine HCl 0.1 mg tablet See Rx Instructions .Route 07/17/23 .COMPLEX #20 tabs hydrochlorothiazide 25 mg tablet 25 mg PO QAM Hyperten leeanna #30 tabs 07/18/23 hydrochlorothiazide 25 mg tablet 25 mg PO DAILY Elevat ed blood 10/28/23 pressure #90 tabs metoprolol tartrate 25 mg tablet 12.5 mg (1/2 x 25 mg) PO BID 10/28/23 Elevated Blood pressure #30 tabs levothyroxine 50 mcg tablet 50 mcg PO DAILY #112 tabs 11/17/23 metformin 500 mg tablet 1,000 mg (2 x 500 mg) PO BID #360 11/17/23 tabs pen needle, diabetic 32 gauge x #100 ea 11/17/23 (BD Ultra-Fine Coby Pen Needle) lisinopril 20 mg tablet See Rx Instructions .Route 0 01/08/24 .COMPLEX #90 tabs exenatide 5 mcg/dose (250 5 mcg (0.02 mL) SUBCUT BID 1 month 05/17/24 mcg/mL)1.2 mL subcutaneous pen #1.2 mL injector ([employer]) exenatide 10 mcg/dose(250 10 mcg (0.04 mL) SUBCUT BID #2.4 mL 07/13/24 mcg/mL)2.4 mL subcutaneous pen injector ([employer]) Allergies Allergy/AdvReac Type Severity Reaction Status Date / Time No Known Allergies Allergy Verified 11/15/24 17:28 Review of Systems 2 Const: Denies: fever(s) or chills Card: Denies: chest pain Resp: Denies: dyspnea GI: Denies: abdominal pain : Denies: dysuria, urinary frequency or urinary urgency Musc: Denies: neck pain or back pain Skin/Breast: Denies: rash PFSH ED 2 PFSH: Medical History Well woman exam with routine gynecological exam Aftercare following surgery of the genitourinary system Hypertension H/O brain tumor benign tumor removed Urinary, incontinence, stress female Surgical History H/O vaginal surgery 12/20/2020- single incision mid urethral sling performed by Dr. Rolon at [facility] H/O section 2014 History of endometrial ablation 2015 Family History Brother Thyroid disease Sister Thyroid disease Mother Thyroid disease Grandmother Breast cancer maternal great Family/Other Breast cancer maternal great aunt Denies family history of Colon cancer Ovarian cancer Diabetes Clotting disorder Heart disease Hyperlipidemia Anesthesia complication Bleeding disorder Hypertension Uterine cancer Stroke Social History Smoking and tobacco/nicotine status: never used tobacco/nicotine Alcohol intake: never Substance/Drug Use: never Physical Exam 2 Const: GENERAL APPEARANCE: cooperative ORIENTATION/CONSCIOUSNESS: Yes awake, Yes oriented to person, Yes oriented to place and Yes oriented to time HENMT: COMMON NORMALS: normocephalic, atraumatic and hearing grossly normal bilaterally HEAD & SCALP: normocephalic and atraumatic Resp: COMMON NORMALS: normal respiratory effort, No retractions, No use of accessory muscles and clear to auscultation bilaterally AUSCULTATION: clear to auscultation bilaterally Cardio: COMMON NORMALS: regular rate, regular rhythm and No murmurs present (Cardio) RATE: regular rate RHYTHM: regular rhythm GI: COMMON NORMALS: Soft to palpation and No hepatosplenomegaly present A USCULTATION: Yes normoactive bowel sounds PALPATION: Yes Soft to palpation, No Tenderness to palpation present (GI), No Guarding due to palpation present (GI) and Yes No hepatosplenomegaly present Extremity: COMMON NORMALS: normal to inspection, capillary refill normal, no clubbing, cyanosis or edema, no calf tenderness and no pedal edema Neuro: SENSORIUM/ORIENTATION: Yes oriented to person, Yes oriented to place and Yes oriented to time OTHER: No focal neurologic deficits no lateralizing symptoms Skin: COMMON NORMALS: no rashes or lesions noted GENERAL SKIN EXAM: no rashes or lesions noted Course 2 Vital Signs: Vital signs: Vital Signs Temperature 98.0 F 11/15/24 17:19 Pulse Rate 92 11/15/24 22:07 Respiratory Rate 18 11/15/24 18:49 Blood Pressure 157/101 11/15/24 22:07 Pulse Oximetry 99 11/15/24 22:07 Oxygen Delivery Me thod Room Air 11/15/24 19:[address] [facility] - General Adult Medical Decision Making Care signed out to Dr. Bloom at change of shift. See final notes for diagnosis and disposition. In summary, patient is a pleasant 49-year-old female signed out to me by previous emergency physician for accelerated hypertension and headache. She states that she gets frequent migraines associated with visual aura, tingling, and weakness. Currently, headache is 9 of 10. She was given IV fluids, Benadryl, Compazine, Toradol. I suspect this will also augment her blood pressure. At the time of my evaluation blood pressure was 160/90. Additionally, she relates that 10 years ago she had a brain mass removed from her left posterior parietal region. She is uncertain what exactly that mass was but has never had any recurrence or metastatic lesions. She is requesting to receive a CT scan of the brain and I think this is reasonable. CT scan of the brain shows no acute bleed or mass. Headache is much improved from 9 out of 10 pain to 1 out of 10 pain after treatment. Blood pressure has also decreased after treating headache pain to 130/80. I do not suspect any other emergent process warranting further workup at this time. She will be discharged in stable and improved condition with follow-up to primary care to optimize her blood pressure medications. Lab Data 11/15/24 17:36 11/15/24 17:36 Radiology Impressions Chest X-Ray 11/15/24 17:37 IMPRESSION: No acute cardiopulmonary abnormality. Head CT 11/15/24 19:44 IMPRESSION: No acute intracranial abnormality. Laboratory Results WBC 5.51 10^3/uL (3.29-11.43) 11/15/24 17:36 RBC 4.55 10^6/uL (3.85-5.65) 11/15/24 17:36 Hgb 14.30 g/dL (11.27-16.99) 11/15/24 17:36 Hct 40.9 % (36-47) 11/15/24 17:36 MCV 89.9 fl (85-98) 11/15/24 17:36 MCH 31.4 pg (27-33) 11/15/24 17:36 MCHC 35.0 g/dL (30-55) 11/15/24 17:36 RDW 12.5 % (12.1-15.1) 11/15/24 17:36 Plt Count 272 10^3/cmm (157-399) 11/15/24 17:36 MPV 9.6 fL (7.4-10.4) 11/15/24 17:36 Neut % (Auto) 75.2 % 11/15/24 17:36 Lymph % (Auto) 17.1 % 11/15/24 17:36 Denali % (Auto) 6.4 % 11/15/24 17:36 Eos % (Auto) 0.2 % 11/15/24 17:36 Baso % (Auto) 0.7 % 11/15/24 17:36 Neut # (Auto) 4.15 10^3/uL (1.8-7.7) 11/15/24 17:36 Lymph # (Auto) 0.9 10^3/uL (0.8-4.8) 11/15/24 17:36 Den[place] # (Auto) 0.4 10^3/uL (0.2-0.9) 11/15/24 17:36 Eos # (Auto) 0.0 10^3/uL (0.0-0.8) 11/15/24 17:36 Baso # (Auto) 0.0 10^3/uL (0.0-0.1) 11/15/24 17:36 Nucleated RBC % (auto) 0 % 11/15/24 17:36 Nucleated RBCs # 0.0 /100WBC 11/15/24 17:36 Sodium 137 mmol/L (136-145) 11/15/24 17:36 Potassium 3.8 mmol/L (3.5-5.1) 11/15/24 17:36 Chloride 106 mmol/L (98-107) 11/15/24 17:36 Carbon Dioxide 20 mmol/L (22-29) L 11/15/24 17:36 Anion Gap 14.8 (5-19) 11/15/24 17:36 BUN 10 mg/dL (6-20) 11/15/24 17:36 Creatinine 0.8 mg/dL (0.5-0.9) 11/15/24 17:36 GFR Calculation 76.2 mL/min (90-130) L 11/15/24 17:36 Glucose 86 mg/dL (65-115) 11/15/24 17:36 Calculated Osmolality 282 mOsm/kg (285-295) L 11/15/24 17:36 Calcium 8.9 mg/dL (8.5-10.5) 11/15/24 17:36 Total Bilirubin 0.5 mg/dL (0.15-1.2) 11/15/24 17:36 AST 11 U/L (0-32) 11/15/24 17:36 ALT 14 U/L (0-33) 11/15/24 17:36 Alkaline Phosphatase 72 U/L (35-105) 11/15/24 17:36 Total Protein 7.0 g/dL (6.6-8.7) 11/15/24 17:36 Albumin 4.4 g/dL (3.5-5.2) 11/15/24 17:36 Globulin 2.6 g/dL (1.3-4.6) 11/15/24 17:36 TSH 1.34 uIU/mL (0.27-4.20) 11/15/24 17:36 Discharge Plan Discharge Patient Disposition: Home Clinical Impression: Headache, Accelerated hypertension Condition: Stable Prescriptions: No Action triamcinolone acetonide 0.1 % ointment 1 applic topical BID metformin 500 mg tablet 1,000 mg PO BID Qty: 360 1RF levothyroxine 50 mcg tablet 50 mcg PO DAILY Qty: 112 2RF Rx Instructions: 1 tab fri-friday, 1.5 tab on Friday, 2 tablet friday (DME) pen needle, diabetic [BD Ultra-Fine Coby Pen Needle] 32 gauge x 5/32 needle See Rx Instructions .ROUTE .COMPLEX Qty: 100 3RF Dose Instruction: USE DIRECTED Rx Instructions: USE DIRECTED Byetta 5 mcg/dose (250 mcg/mL) 1.2 mL pen injector 5 mcg SUBCUT BID 30 Days Qty: 1.2 0RF Rx Instructions: inject 5mcg 2x/day before breakfast and dinner for one month lisinopril 20 mg tablet See Rx Instructions .ROUTE .COMPLEX Qty: 90 1RF Dose Instruction: TAKE 1 TABLET BY MOUTH EVERY DAY Rx Instructions: TAKE 1 TABLET BY MOUTH EVERY DAY exenatide [Byetta] 10 mcg/dose(250 mcg/mL) 2.4 mL pen injector 10 mcg SUBCUT BID Qty: 2.4 0RF Rx Instructions: inject 10mcg 2x/day before breakfast and dinner Benadryl 25 mg Capsule 25 mg PO DAILY clonidine HCl 0.1 mg tablet See Rx Instructions .ROUTE .COMPLEX Qty: 20 0RF Rx Instructions: Please take 1 tablet by mouth 3 times a day as needed for blood pressure greater than 160/100 hydrochlorothiazide 25 mg tablet 25 mg PO QAM Qty: 30 0RF hydrochlorothiazide 25 mg tablet 25 mg PO DAILY Qty: 90 0RF metoprolol tartrate 25 mg tablet 12.5 mg PO BID Qty: 30 0RF Discharge Orders: Discharge ED (Routine); Ordered 11/15/24 Ordered By: Ahmet Bloom Referrals: Angelita Bustillo FNP [Primary Care Provider] - Discharge Diet: Usual diet Discharge Activity: Resume usual activity Patient Instructions: Acute Headache (ED) Activity Restrictions/Additional Instructions: Your CT scan, EKG, and blood work are reassuring. Your blood pressure responded well after the headache was treated. There is no evidence of endorgan damage. Please follow-up with your primary care doctor to make sure your blood pressure medicine is appropriate. Print Language: Emirati Sign Out Sign Out Data: Patient Sign Out occurred on 11/15/24 at 18:35. Patient's care was discussed, and care was transferred from Radu Morris DO to Ahmet Bloom MD. Coding Level of Care Code ED Adhesive Sprayer for Chg Fwd Documented by User: Ahmet Bloom MD 11/16/24 04:14 HPI - General Adult 2 General: Chief complaint: General Medical Stated complaint: high bp Time Seen by Provider: 11/15/24 17:30 Related Data Home Medications ?Medication ?Instructions ?Recorded ?Confirmed triamcinolone acetonide 0.1 % 1 applic topical BID 12/2305/18/24 topical ointment diphenhydramine HCl 25 mg capsule 25 mg PO DAILY 07/1705/18/24 (Benadryl) Previous Rx's ?Medication ?Instructions ?Recorded clonidine HCl 0.1 mg tablet See Rx Instructions .Route 07/17/23 .COMPLEX #20 tabs hydrochlorothiazide 25 mg tablet 25 mg PO QAM Hyperten leeanna #30 tabs 07/18/23 hydrochlorothiazide 25 mg tablet 25 mg PO DAILY Elevat ed blood 10/28/23 pressure #90 tabs metoprolol tartrate 25 mg tablet 12.5 mg (1/2 x 25 mg) PO BID 10/28/23 Elevated Blood pressure #30 tabs levothyroxine 50 mcg tablet 50 mcg PO DAILY #112 tabs 11/17/23 metformin 500 mg tablet 1,000 mg (2 x 500 mg) PO BID #360 11/17/23 tabs pen needle, diabetic 32 gauge x #100 ea 11/17/23 (BD Ultra-Fine Coby Pen Needle) lisinopril 20 mg tablet See Rx Instructions .Route 0 01/08/24 .COMPLEX #90 tabs exenatide 5 mcg/dose (250 5 mcg (0.02 mL) SUBCUT BID 1 month 05/17/24 mcg/mL)1.2 mL subcutaneous pen #1.2 mL injector ([employer]) exenatide 10 mcg/dose(250 10 mcg (0.04 mL) SUBCUT BID #2.4 mL 07/13/24 mcg/mL)2.4 mL subcutaneous pen injector ([employer]) Allergies Allergy/AdvReac Type Severity Reaction Status Date / Time No Known Allergies Allergy Verified 11/15/24 17:28 PFSH ED 2 PFSH: Medical History Well woman exam with routine gynecological exam Aftercare following surgery of the genitourinary system Hypertension H/O brain tumor benign tumor removed Urinary, incontinence, stress female Surgical History H/O vaginal surgery 12/20/2020- single incision mid urethral sling performed by Dr. Rolon at [facility] H/O section 2013 History of endometrial ablation 2015 Family History Brother Thyroid disease Sister Thyroid disease Mother Thyroid disease Grandmother Breast cancer maternal great Family/Other Breast cancer maternal great aunt Denies family history of Colon cancer Ovarian cancer Diabetes Clotting disorder Heart disease Hyperlipidemia Anesthesia complication Bleeding disorder Hypertension Uterine cancer Stroke Social History Smoking and tobacco/nicotine status: never used tobacco/nicotine Alcohol intake: never Substance/Drug Use: never Course 2 Vital Signs: Vital signs: Vital Signs Temperature 98.0 F 11/15/24 17:19 Pulse Rate 92 11/15/24 22:07 Respiratory Rate 18 11/15/24 18:49 Blood Pressure 157/101 11/15/24 22:07 Pulse Oximetry 99 11/15/24 22:07 Oxygen Delivery Me thod Room Air 11/15/24 19:30 MDM - General Adult Medical Decision Making In summary, patient is a pleasant 49-year-old female signed out to me by previous emergency physician for accelerated hypertension and headache. She states that she gets frequent migraines associated with visual aura, tingling, and weakness. Currently, headache is 9 of 10. She was given IV fluids, Benadryl, Compazine, Toradol. I suspect this will also augment her blood pressure. At the time of my evaluation blood pressure was 160/90. Additionally, she relates that 10 years ago she had a brain mass removed from her left posterior parietal region. She is uncertain what exactly that mass was but has never had any recurrence or metastatic lesions. She is requesting to receive a CT scan of the brain and I think this is reasonable. CT scan of the brain shows no acute bleed or mass. Headache is much improved from 9 out of 10 pain to 1 out of 10 pain after treatment. Blood pressure has also decreased after treating headache pain to 130/80. I do not suspect any other emergent process warranting further workup at this time. She will be discharged in stable and improved condition with follow-up to primary care to optimize her blood pressure medications. Lab Data 11/15/24 17:36 11/15/24 17:36 Radiology Impressions Chest X-Ray 11/15/24 17:37 IMPRESSION: No acute cardiopulmonary abnormality. Head CT 11/15/24 19:44 IMPRESSION: No acute intracranial abnormality. Laboratory Results WBC 5.51 10^3/uL (3.29-11.43) 11/15/24 17:36 RBC 4.55 10^6/uL (3.85-5.65) 11/15/24 17:36 Hgb 14.30 g/dL (11.27-16.99) 11/15/24 17:36 Hct 40.9 % (36-47) 11/15/24 17:36 MCV 89.9 fl (85-98) 11/15/24 17:36 MCH 31.4 pg (27-33) 11/15/24 17:36 MCHC 35.0 g/dL (30-55) 11/15/24 17:36 RDW 12.5 % (12.1-15.1) 11/15/24 17:36 Plt Count 272 10^3/cmm (157-399) 11/15/24 17:36 MPV 9.6 fL (7.4-10.4) 11/15/24 17:36 Neut % (Auto) 75.2 % 11/15/24 17:36 Lymph % (Auto) 17.1 % 11/15/24 17:36 Denali % (Auto) 6.4 % 11/15/24 17:36 Eos % (Auto) 0.2 % 11/15/24 17:36 Baso % (Auto) 0.7 % 11/15/24 17:36 Neut # (Auto) 4.15 10^3/uL (1.8-7.7) 11/15/24 17:36 Lymph # (Auto) 0.9 10^3/uL (0.8-4.8) 11/15/24 17:36 Denali # (Auto) 0.4 10^3/uL (0.2-0.9) 11/15/24 17:36 Eos # (Auto) 0.0 10^3/uL (0.0-0.8) 11/15/24 17:36 Baso # (Auto) 0.0 10^3/uL (0.0-0.1) 11/15/24 17:36 Nucleated RBC % (auto) 0 % 11/15/24 17:36 Nucleated RBCs # 0.0 /100WBC 11/15/24 17:36 Sodium 137 mmol/L (136-145) 11/15/24 17:36 Potassium 3.8 mmol/L (3.5-5.1) 11/15/24 17:36 Chloride 106 mmol/L (98-107) 11/15/24 17:36 Carbon Dioxide 20 mmol/L (22-29) L 11/15/24 17:36 Anion Gap 14.8 (5-19) 11/15/24 17:36 BUN 10 mg/dL (6-20) 11/15/24 17:36 Creatinine 0.8 mg/dL (0.5-0.9) 11/15/24 17:36 GFR Calculation 76.2 mL/min (90-130) L 11/15/24 17:36 Glucose 86 mg/dL (65-115) 11/15/24 17:36 Calculated Osmolality 282 mOsm/kg (285-295) L 11/15/24 17:36 Calcium 8.9 mg/dL (8.5-10.5) 11/15/24 17:36 Total Bilirubin 0.5 mg/dL (0.15-1.2) 11/15/24 17:36 AST 11 U/L (0-32) 11/15/24 17:36 ALT 14 U/L (0-33) 11/15/24 17:36 Alkaline Phosphatase 72 U/L (35-105) 11/15/24 17:36 Total Protein 7.0 g/dL (6.6-8.7) 11/15/24 17:36 Albumin 4.4 g/dL (3.5-5.2) 11/15/24 17:36 Globulin 2.6 g/dL (1.3-4.6) 11/15/24 17:36 TSH 1.34 uIU/mL (0.27-4.20) 11/15/24 17:36 All radiology interpretation(s) finalized by discharge Discharge Plan Discharge Patient Disposition: Home Clinical Impression: Headache, Accelerated hypertension Condition: Stable Prescriptions: No Action triamcinolone acetonide 0.1 % ointment 1 applic topical BID metformin 500 mg tablet 1,000 mg PO BID Qty: 360 1RF levothyroxine 50 mcg tablet 50 mcg PO DAILY Qty: 112 2RF Rx Instructions: 1 tab fri-friday, 1.5 tab on Friday, 2 tablet friday (DME) pen needle, diabetic [BD Ultra-Fine Coby Pen Needle] 32 gauge x 5/32 needle See Rx Instructions .ROUTE .COMPLEX Qty: 100 3RF Dose Instruction: USE DIRECTED Rx Instructions: USE DIRECTED Byetta 5 mcg/dose (250 mcg/mL) 1.2 mL pen injector 5 mcg SUBCUT BID 30 Days Qty: 1.2 0RF Rx Instructions: inject 5mcg 2x/day before breakfast and dinner for one month lisinopril 20 mg tablet See Rx Instructions .ROUTE .COMPLEX Qty: 90 1RF Dose Instruction: TAKE 1 TABLET BY MOUTH EVERY DAY Rx Instructions: TAKE 1 TABLET BY MOUTH EVERY DAY exenatide [Byetta] 10 mcg/dose(250 mcg/mL) 2.4 mL pen injector 10 mcg SUBCUT BID Qty: 2.4 0RF Rx Instructions: inject 10mcg 2x/day before breakfast and dinner Benadryl 25 mg Capsule 25 mg PO DAILY clonidine HCl 0.1 mg tablet See Rx Instructions .ROUTE .COMPLEX Qty: 20 0RF Rx Instructions: Please take 1 tablet by mouth 3 times a day as needed for blood pressure greater than 160/100 hydrochlorothiazide 25 mg tablet 25 mg PO QAM Qty: 30 0RF hydrochlorothiazide 25 mg tablet 25 mg PO DAILY Qty: 90 0RF metoprolol tartrate 25 mg tablet 12.5 mg PO BID Qty: 30 0RF Discharge Orders: Discharge ED (Routine); Ordered 11/15/24 Ordered By: Ahmet Bloom Referrals: Angelita Bustillo HA[employer] WASTE TECHNICIAN [Primary Care Provider] - Discharge Diet: Usual diet Discharge Activity: Resume usual activity Patient Instructions: Acute Headache (ED) Activity Restrictions/Additional Instructions: Your CT scan, EKG, and blood work are reassuring. Your blood pressure responded well after the headache was treated. There is no evidence of endorgan damage. Please follow-up with your primary care doctor to make sure your blood pressure medicine is appropriate. Print Language: Emirati Sign Out Sign Out Data: Patient Sign Out occurred on 11/15/24 at 18:35. Patient's care was discussed, and care was transferred from Radu Morris DO to Ahmet Bloom MD. Coding Level of Care Code ED Adhesive Sprayer for Jeff Hall
[2024-11-15 17:46] LABS: Basophils % 0.7 %; Eosinophils % 0.2 %; Hematocrit 40.9 % (36-47); Lymphocytes # 0.9 10^3/uL (0.8-4.8); Lymphocytes % 17.1 %; Mean Corpuscular Hemoglobin 31.4 pg (27-33); Mean Corpuscular Volume 89.9 fl (85-98); Mean Platelet Volume 9.6 fL (7.4-10.4); Monocytes # 0.4 10^3/uL (0.2-0.9); Monocytes % 6.4 %; Neutrophils # 4.15 10^3/uL (1.8-7.7); Neutrophils % 75.2 %; Nucleated Red Blood Cells % 0 %; Platelet Count 272 10^3/cmm (157-399); Red Blood Count 4.55 10^6/uL (3.85-5.65); Red Cell Distribution Width 12.5 % (12.1-15.1); White Blood Count 5.51 10^3/uL (3.29-11.43)
[2024-11-15] MEDS: metoprolol tartrate 25 mg Tablet PO (18:03)
[2024-11-15] MEDS: labetalol 5 mg/mL SDV 20mL 10 MG IVP (18:03)
[2024-11-15 18:19] LABS: Alanine Aminotransferase 14 U/L (0-33); Albumin Level 4.4 g/dL (3.5-5.2); Alkaline Phosphatase 72 U/L (35-105); Anion Gap 14.8 (5-19); Aspartate Amino Transferase 11 U/L (0-32); Blood Urea Nitrogen 10 mg/dL (6-20); Calcium 8.9 mg/dL (8.5-10.5); Carbon Dioxide 20 mmol/L (22-29); Chloride 106 mmol/L (98-107); Creatinine Clr Calc Pharmacy 86.7636; Globulin 2.6 g/dL (1.3-4.6); Glomerular Filtration Rate 76.2 mL/min (90-130); Glucose 86 mg/dL (65-115); Osmolality Calculated 282 mOsm/kg (285-295); Potassium 3.8 mmol/L (3.5-5.1); Sodium 137 mmol/L (136-145); Thyroid Stimulating Hormone 1.34 uIU/mL (0.27-4.20); Total Bilirubin 0.5 mg/dL (0.15-1.2)
[2024-11-15] MEDS: hyDRALAzine 20 mg/mL INJ 1 mL 10 MG IVP (18:43)
--- NOTE | 2024-11-15 19:44 | CTR_ITS ---
PROCEDURE INFORMATION: Exam: CT Head Without Contrast Exam date and time: 11/15/2024 8:41 PM Age: 49 years old Clinical indication: Pain; Headache; Migraine; Aura effect not specified; Does respond to medication; Severity not specified; Prior surgery; Surgery date: 6+ months; Surgery type: Vision loss, HX of left-sided brain mass surgically removed 10 years ago; Additional info: Headache, vision loss, HX of left-sided brain mass surgically removed TECHNIQUE: Imaging protocol: Computed tomography of the head without contrast. Radiation optimization: All CT scans at this facility use at least one of these dose optimization techniques: automated exposure control; mA and/or kV adjustment per patient size (includes targeted exams where dose is matched to clinical indication); or iterative reconstruction. COMPARISON: CT head wo con* [id number] 01/12/2019 9:44 PM RADIATION DOSE METRICS: Total DLP (mGy-cm): 1199.67 FINDINGS: Brain: No intracranial hemorrhage or hematoma is seen. No mass effect or shift of midline structures. No significant change with prior CT exam 01/12/2019. Cerebral ventricles: No ventriculomegaly. Paranasal sinuses: Visualized sinuses are unremarkable. No fluid levels. Mastoid air cells: See Bones finding. Bones: Bone windows demonstrate previous postsurgical change left mastoid air cells, as noted with prior exam. No acute osseous abnormality. Soft tissues: Unremarkable. CT/CT head wo con* [id number] IMPRESSION: No acute intracranial abnormality.
[2024-11-15] MEDS: diphenhydrAMINE 50 mg/mL SDV 1mL 25 MG IVP (19:56)
[2024-11-15] MEDS: ketorolac 30 mg/mL INJ 15 MG IVP (19:58)
[2024-11-15] MEDS: prochlorperazine 10 mg/2 mL Inj 5 MG IVP (20:00)
[2024-11-15] MEDS: sodium chloride 0.9% 1,000 ML 999 ML IV (20:04)
== END 2024-11-15 22:05 | disposition home or self-care (01) ==
PROVIDERS: Emergency Medicine; Emergency Provider Student in an Organized Health Care Education/Training Program; PCP Nurse Practitioner Family
DX: R51.9 Headache, unspecified (principal); I10 Essential (primary) hypertension; Z79.84 Long term (current) use of oral hypoglycemic drugs
CPT/HCPCS: 36415; 70450; 71045; 80053; 84443; 85025; 93005; 96361; 96374; 96375; 99285; J0360; J0780; J1200; J1885; J3490; J7030; J9999

== ENCOUNTER → 2024-11-16 09:57 | Outpatient (BNVA) | payer BC, MEDICAID, SELFPAY | PROVIDERS: PCP Nurse Practitioner Family; Visit Provider Internal Medicine | DX: E03.8 Other specified hypothyroidism (principal); I16.0 Hypertensive urgency; I10 Essential (primary) hypertension; E66.9 Obesity, unspecified; Z87.898 Personal history of other specified conditions; R93.89 Abnormal findings on diagnostic imaging of other specified body structures | CPT/HCPCS: 80061; 82088; 84244 ==

== ENCOUNTER 2025-02-23 12:14 | Outpatient (CLI) | payer BC, MEDICAID, SELFPAY ==
[2025-02-23 13:04] LABS: Estmated Average Glucose 100; Hemoglobin A1C 5.1 % (4.0-6.0)
[2025-02-23 13:11] LABS: Creatinine Urine, Random 265 mg/dL (28-217); Microalbum Creatinine Ratio Ur 4 mg/dL (0-20)
[2025-02-23 13:28] LABS: Alanine Aminotransferase 18 U/L (0-33); Albumin Level 4.4 g/dL (3.5-5.2); Alkaline Phosphatase 70 U/L (35-105); Anion Gap 18.1 (5-19); Aspartate Amino Transferase 13 U/L (0-32); Blood Urea Nitrogen 15 mg/dL (6-20); Calcium 9.5 mg/dL (8.5-10.5); Carbon Dioxide 22 mmol/L (22-29); Chloride 107 mmol/L (98-107); Cholesterol 242 mg/dL (0-200); Free T4 Free Thyroxine 0.85 ng/dL (0.82-1.77); Globulin 2.7 g/dL (1.3-4.6); Glucose 80 mg/dL (65-115); HDL Cholesterol 57 mg/dL (60-100); Osmolality Calculated 296 mOsm/kg (285-295); Potassium 4.1 mmol/L (3.5-5.1); Sodium 143 mmol/L (136-145); Thyroid Stimulating Hormone 2.00 uIU/mL (0.27-4.20); Total Protein 7.1 g/dL (6.6-8.7); Triglycerides 124 mg/dL (0-150)
== END 2025-02-23 12:15 | disposition home or self-care (01) ==
LOC: LAB 12:15
PROVIDERS: PCP Nurse Practitioner Family; Visit Provider Internal Medicine
DX: E03.8 Other specified hypothyroidism (principal)
CPT/HCPCS: 36415; 80053; 80061; 82044; 83036; 84439; 84443

== ENCOUNTER 2025-04-06 08:01 | Outpatient (CLI) | payer BC, MEDICAID, SELFPAY ==
--- NOTE | 2025-04-06 | MM_ITS ---
WS: [id number] BILATERAL SCREENING DIGITAL TOMOSYNTHESIS MAMMOGRAM WITH CAD HISTORY: ANNUAL SCREENING COMPARISON: 11/17/2020, 08/27/2019 Bilateral CC and MLO views with tomosynthesis and synthetic mammography submitted. Computer aided detection analyzed. Breast composition: The breasts are heterogeneously dense, which may obscure small masses. No suspicious masses, microcalcifications or architectural distortion. MM/MM scr BI tomosynthesis [id number] IMPRESSION: BI-RADS: 1 - Negative FOLLOW UP: 1 Year Follow-up
== END 2025-04-06 08:02 | disposition home or self-care (01) ==
LOC: RAD 08:02
PROVIDERS: PCP Nurse Practitioner Family; Visit Provider Nurse Practitioner Family
DX: Z12.31 Encounter for screening mammogram for malignant neoplasm of breast (principal); R92.333 Mammographic heterogeneous density, bilateral breasts
CPT/HCPCS: 77063; 77067

== ENCOUNTER 2025-06-27 08:12 | Outpatient (CLI) | payer BC, MEDICAID, SELFPAY ==
[2025-06-27 10:17] LABS: Creatinine Urine, Random 243 mg/dL (28-217); Microalbum Creatinine Ratio Ur 4 mg/dL (0-20)
[2025-06-27 10:26] LABS: Alanine Aminotransferase 23 U/L (0-33); Albumin Level 4.5 g/dL (3.5-5.2); Alkaline Phosphatase 59 U/L (35-105); Aspartate Amino Transferase 14 U/L (0-32); Blood Urea Nitrogen 13 mg/dL (6-20); Calcium 9.1 mg/dL (8.5-10.5); Carbon Dioxide 24 mmol/L (22-29); Chloride 105 mmol/L (98-107); Cholesterol 215 mg/dL (0-200); Free T4 Free Thyroxine 1.02 ng/dL (0.82-1.77); Globulin 2.4 g/dL (1.3-4.6); Glucose 88 mg/dL (65-115); HDL Cholesterol 48 mg/dL (60-100); Osmolality Calculated 286 mOsm/kg (285-295); Sodium 138 mmol/L (136-145); Thyroid Stimulating Hormone 1.22 uIU/mL (0.27-4.20); Total Protein 6.9 g/dL (6.6-8.7); Triglycerides 179 mg/dL (0-150)
[2025-06-27 10:27] LABS: Anion Gap 12.9 (5-19); Potassium 3.9 mmol/L (3.5-5.1)
[2025-06-27 10:34] LABS: Estmated Average Glucose 85; Hemoglobin A1C 4.6 % (4.0-6.0)
== END 2025-06-27 08:13 | disposition home or self-care (01) ==
LOC: LAB 08:14
PROVIDERS: Family Medicine; PCP Nurse Practitioner Family; Visit Provider Internal Medicine
DX: E11.9 Type 2 diabetes mellitus without complications (principal); E03.8 Other specified hypothyroidism
CPT/HCPCS: 80053; 80061; 82044; 83036; 84439; 84443